=== PATIENT | female | born 1965 | race Caucasian/White ===

== ENCOUNTER 2020-07-09 08:30 | Outpatient (REF) | payer OTHER, SELFPAY ==
[2020-07-09 08:51] LABS: COVID-19 Test Negative (Negative)
== END 2020-07-09 08:31 | disposition home or self-care (01) ==
LOC: HO.EMPCOV 08:30
PROVIDERS: PCP Internal Medicine; Visit Provider Internal Medicine
DX: Z20.828 Contact with and (suspected) exposure to other viral communicable diseases (principal)
CPT/HCPCS: 87635; C9803

== ENCOUNTER 2020-07-12 09:46 | Outpatient (REF) | payer OTHER, SELFPAY ==
[2020-07-12 11:01] LABS: COVID-19 Test Negative (Negative)
== END 2020-07-12 09:47 | disposition home or self-care (01) ==
LOC: HO.EMPCOV 09:46
PROVIDERS: Visit Provider Internal Medicine
DX: Z20.828 Contact with and (suspected) exposure to other viral communicable diseases (principal)
CPT/HCPCS: 87635; C9803

== ENCOUNTER → 2020-08-11 07:37 | Outpatient (BNVA) | payer OTHER, SELFPAY | PROVIDERS: PCP Internal Medicine; Visit Provider Internal Medicine Endocrinology, Diabetes & Metabolism | DX: E11.40 Type 2 diabetes mellitus with diabetic neuropathy, unspecified (principal); E11.21 Type 2 diabetes mellitus with diabetic nephropathy; E78.5 Hyperlipidemia, unspecified; I10 Essential (primary) hypertension; E66.01 Morbid (severe) obesity due to excess calories; E55.9 Vitamin D deficiency, unspecified; I48.91 Unspecified atrial fibrillation; Z90.710 Acquired absence of both cervix and uterus; Z79.4 Long term (current) use of insulin; Z79.01 Long term (current) use of anticoagulants; Z79.899 Other long term (current) drug therapy | CPT/HCPCS: 82947; 99212 ==

== ENCOUNTER 2020-09-18 10:38 | Outpatient (REF) | payer OTHER, SELFPAY ==
[2020-09-18 11:37] LABS: Alanine Aminotransferase 19 U/L (0-31); Albumin Level 4.2 g/dL (3.5-5.0); Alkaline Phosphatase 116 U/L (39-117); Anion Gap 14 (12-20); Aspartate Amino Transferase 17 U/L (5-31); Bilirubin Total 0.5 mg/dL (0.0-1.0); Blood Urea Nitrogen 23 mg/dL (9-16); Calcium 9.4 mg/dL (8.4-10.2); Carbon Dioxide 30 mmol/L (22-29); Chloride 103 mmol/L (96-108); Cholesterol 175 mg/dL; Estimated Glomerular Filt Rate > 60; Glucose Fasting 129 mg/dL (60-99); HDL Cholesterol 44 mg/dL; LDL Cholesterol Calculated 101 mg/dl; Potassium 4.5 mmol/l (3.3-5.1); Sodium 142 mmol/L (135-145); Total Protein 7.5 g/dL (6.5-8.0); Triglycerides 153 mg/dL
[2020-09-18 12:12] LABS: Creatinine Urine 90.27 mg/dL
[2020-09-19 15:53] LABS: LDL Cholesterol Direct 111 mg/dL (<100)
== END 2020-09-18 10:39 | disposition home or self-care (01) ==
LOC: HO.LAB 10:38
PROVIDERS: PCP Internal Medicine; Visit Provider Internal Medicine Endocrinology, Diabetes & Metabolism
DX: E11.9 Type 2 diabetes mellitus without complications (principal)
CPT/HCPCS: 36415; 80053; 80061; 82043; 83721

== ENCOUNTER → 2021-02-25 07:29 | Outpatient (BNVA) | payer OTHER, SELFPAY | PROVIDERS: PCP Internal Medicine; Visit Provider Internal Medicine Endocrinology, Diabetes & Metabolism | DX: E11.21 Type 2 diabetes mellitus with diabetic nephropathy (principal); E11.40 Type 2 diabetes mellitus with diabetic neuropathy, unspecified; E78.5 Hyperlipidemia, unspecified; E55.9 Vitamin D deficiency, unspecified; E66.01 Morbid (severe) obesity due to excess calories; I10 Essential (primary) hypertension; Z79.4 Long term (current) use of insulin | CPT/HCPCS: 82947 ==

== ENCOUNTER 2021-03-07 12:22 | Outpatient (REF) | payer OTHER, SELFPAY ==
[2021-03-07 14:06] LABS: Alanine Aminotransferase 17 U/L (0-31); Albumin Level 4.2 g/dL (3.5-5.0); Alkaline Phosphatase 135 U/L (39-117); Anion Gap 15 (12-20); Aspartate Amino Transferase 21 U/L (5-31); Bilirubin Total 0.6 mg/dL (0.0-1.0); Blood Urea Nitrogen 14 mg/dL (9-16); Calcium 9.8 mg/dL (8.4-10.2); Carbon Dioxide 26 mmol/L (22-29); Chloride 104 mmol/L (96-108); Cholesterol 180 mg/dL; Estimated Glomerular Filt Rate > 60; Glucose Fasting 110 mg/dL (60-99); HDL Cholesterol 49 mg/dL; LDL Cholesterol Calculated 108 mg/dl; Potassium 4.3 mmol/L (3.3-5.1); Sodium 141 mmol/L (135-145); Total Protein 7.8 g/dL (6.5-8.0); Triglycerides 117 mg/dL
[2021-03-07 14:29] LABS: Free T4 (Free Thyroxine) 1.13 ng/dL (0.71-1.85); Thyroid Stimulating Hormone 0.63 uIU/mL (0.32-4.0)
[2021-03-07 14:49] LABS: Glucose Urine UA >=1000 MG/DL (NEG); Leukocyte Esterase Urine NEG (NEG); Nitrite Urine POS (NEG); PH 5.5 (5.0-8.0); Specific Gravity - Urine 1.025 (1.005-1.025); UACC Culture Trigger YES; Urine Blood 3+ (NEG); Urine Ketones NEG (NEG); Urine Protein 2+ MG/DL (NEG-TRACE)
[2021-03-07 14:53] LABS: Appearance Urine CLEAR; Color Urine YELLOW
[2021-03-07 15:04] LABS: Vitamin B12 834 pg/mL (200-900)
[2021-03-07 15:05] LABS: RBC Urine 30-49 /HPF (0); WBC Urine 0-2 /HPF (0-4)
[2021-03-07 15:06] LABS: Bacteria Urine 2+ /LPF; Squamous Epithelial Cell Urine TRACE /LPF
[2021-03-07 15:15] LABS: Creatinine Urine 52.99 mg/dL; Protein/Creatinine Ratio, Ur 1.66 (<0.2); Total Protein Urine Random 88 mg/dL (<12)
[2021-03-07 15:33] LABS: Microalbum/Creatinine Ratio Ur 1062.4 ug/mg cr
[2021-03-09 18:12] LABS: LDL Cholesterol Direct 114 mg/dL (<100)
== END 2021-03-07 12:23 | disposition home or self-care (01) ==
LOC: HO.LAB 12:22
PROVIDERS: PCP Internal Medicine; Visit Provider Internal Medicine Endocrinology, Diabetes & Metabolism
DX: E11.9 Type 2 diabetes mellitus without complications (principal)
CPT/HCPCS: 36415; 80053; 80061; 81001; 81003; 82043; 82607; 83721; 84156; 84439; 84443; 87086; 87088; 87186

== ENCOUNTER 2021-03-16 12:18 | Outpatient (REF) | payer OTHER, SELFPAY ==
[2021-03-16 13:21] LABS: Glucose Urine UA >=1000 MG/DL (NEG); Leukocyte Esterase Urine NEG (NEG); Nitrite Urine NEG (NEG); PH 5.5 (5.0-8.0); Specific Gravity - Urine 1.025 (1.005-1.025); Urine Blood 1+ (NEG); Urine Ketones NEG (NEG); Urine Protein 1+ MG/DL (NEG-TRACE)
[2021-03-16 13:26] LABS: Appearance Urine CLEAR; Color Urine YELLOW
[2021-03-16 13:31] LABS: Mucus Urine 1+ /LPF; Squamous Epithelial Cell Urine 1+ /LPF; WBC Urine 0-2 /HPF (0-4)
== END 2021-03-16 12:19 | disposition home or self-care (01) ==
LOC: HO.10HDL 12:18
PROVIDERS: Visit Provider Internal Medicine Endocrinology, Diabetes & Metabolism
DX: R30.0 Dysuria (principal)
CPT/HCPCS: 81001

== ENCOUNTER 2021-05-21 07:29 | Outpatient (REF) | payer OTHER, SELFPAY ==
--- NOTE | ~2021-05-21 | MM_ITS ---
EXAMINATION: MM SCREENING DIGITAL BREAST TOMOSYNTHESIS, BILATERAL CLINICAL INFORMATION: Screening. Asymptomatic. Benign right stereotactic biopsy 11/01/2017 (benign breast tissue with stromal fibrosis and calcifications). The lifetime risk of breast cancer based on the Tyrer-Cuzick Model is 13%. COMPARISON: Mammography: 05/16/2020, 05/15/2018, 10/25/2017, 10/20/2017 TECHNIQUE: Digital breast tomosynthesis is performed in both the craniocaudal and mediolateral oblique views along with computer-aided detection (CAD). Synthesized 2D images are generated from the tomosynthesis. FINDINGS: There are scattered areas of fibroglandular density (ACR BI-RADS breast composition Category b). Parenchymal clips prior exams. There is no developing density or interval mass or architectural abnormality. No abnormal calcifications. There is a biopsy clip marker again seen mid medial right breast. The axilla and skin contours are unremarkable. MM/MM tomosynthesis screening BI IMPRESSION: No mammographic evidence of malignancy. ASSESSMENT: BI-RADS 1: Negative RECOMMENDATION: Routine annual mammography screening. This patient's information was entered into a reminder system with a target due date for their next mammogram.
== END 2021-05-21 07:30 | disposition home or self-care (01) ==
LOC: HO.MAMMO 07:29
PROVIDERS: PCP Internal Medicine; Visit Provider Internal Medicine
DX: Z12.31 Encounter for screening mammogram for malignant neoplasm of breast (principal)
CPT/HCPCS: 77063; 77067

== ENCOUNTER → 2021-05-25 08:52 | Outpatient (BNVA) | payer OTHER, SELFPAY | PROVIDERS: PCP Internal Medicine; Visit Provider Internal Medicine Cardiovascular Disease | DX: I48.91 Unspecified atrial fibrillation (principal); I10 Essential (primary) hypertension; R07.89 Other chest pain | CPT/HCPCS: 93005 ==

== ENCOUNTER → 2021-12-02 07:36 | Outpatient (BNVA) | payer OTHER, SELFPAY | PROVIDERS: PCP Internal Medicine; Visit Provider Nurse Practitioner Gerontology | DX: E11.21 Type 2 diabetes mellitus with diabetic nephropathy (principal); E11.40 Type 2 diabetes mellitus with diabetic neuropathy, unspecified; E66.01 Morbid (severe) obesity due to excess calories; E78.5 Hyperlipidemia, unspecified; E55.9 Vitamin D deficiency, unspecified; I10 Essential (primary) hypertension; Z79.4 Long term (current) use of insulin; Z68.41 Body mass index [BMI] 40.0-44.9, adult | CPT/HCPCS: 82947 ==

== ENCOUNTER 2021-12-07 07:24 | Outpatient (REF) | payer OTHER, SELFPAY ==
[2021-12-07 08:28] LABS: Alanine Aminotransferase 16 U/L (0-31); Albumin Level 3.9 g/dL (3.5-5.0); Alkaline Phosphatase 103 U/L (39-117); Anion Gap 10 (12-20); Aspartate Amino Transferase 14 U/L (5-31); Bilirubin Total 0.5 mg/dL (0.0-1.0); Blood Urea Nitrogen 18 mg/dL (9-16); Calcium 9.6 mg/dL (8.4-10.2); Carbon Dioxide 29 mmol/L (22-29); Chloride 105 mmol/L (96-108); Cholesterol 169 mg/dL; Estimated Glomerular Filt Rate > 60; Glucose Fasting 144 mg/dL (60-99); HDL Cholesterol 40 mg/dL; LDL Cholesterol Calculated 109 mg/dl; Potassium 4.3 mmol/L (3.3-5.1); Sodium 140 mmol/L (135-145); Total Protein 7.2 g/dL (6.5-8.0); Triglycerides 101 mg/dL
[2021-12-07 08:53] LABS: Vitamin D 25-OH Total 45.2 ng/mL (>30)
[2021-12-07 12:13] LABS: Creatinine Urine 60.81 mg/dL; Microalbum/Creatinine Ratio Ur 733.4 ug/mg cr
[2021-12-08 08:56] LABS: LDL Cholesterol Direct 110 mg/dL (<100)
== END 2021-12-07 07:25 | disposition home or self-care (01) ==
LOC: HO.LAB 07:24
PROVIDERS: PCP Internal Medicine; Visit Provider Nurse Practitioner Gerontology
DX: E11.9 Type 2 diabetes mellitus without complications (principal); E55.9 Vitamin D deficiency, unspecified
CPT/HCPCS: 36415; 80053; 80061; 82043; 82306; 83721

== ENCOUNTER 2022-05-27 09:49 | Outpatient (REF) | payer OTHER, SELFPAY ==
--- NOTE | ~2022-05-27 | MM_ITS ---
EXAMINATION: MM SCREENING DIGITAL BREAST TOMOSYNTHESIS, BILATERAL CLINICAL INFORMATION: Screening. Asymptomatic. The lifetime risk of breast cancer based on the Tyrer-Cuzick Model is 11%. COMPARISON: Mammography: 05/21/2021, 05/10/2020, 12/23/2018 TECHNIQUE: Digital breast tomosynthesis is performed in both the craniocaudal and mediolateral oblique views along with computer-aided detection (CAD). Synthesized 2D images are generated from the tomosynthesis. Additional bilateral MLO views are provided. FINDINGS: There are scattered areas of fibroglandular density (ACR BI-RADS breast composition Category b). There are no significant masses, abnormal calcifications, or other abnormalities. There is incidental biopsy clip marker again seen mid lower inner right breast. Background stromal markings are stable. No developing density or architectural abnormality. The axilla are unremarkable. No significant changes. MM/MM tomosynthesis screening BI IMPRESSION: No mammographic evidence of malignancy. ASSESSMENT: BI-RADS 1: Negative RECOMMENDATION: Routine annual mammography screening. This patient's information was entered into a reminder system with a target due date for their next mammogram.
== END 2022-05-27 09:50 | disposition home or self-care (01) ==
LOC: HO.MAMMO 09:49
PROVIDERS: Visit Provider Internal Medicine
DX: Z12.31 Encounter for screening mammogram for malignant neoplasm of breast (principal)
CPT/HCPCS: 77063; 77067

== ENCOUNTER → 2022-05-29 09:07 | Outpatient (BNVA) | payer OTHER, SELFPAY | PROVIDERS: PCP Nurse Practitioner; Visit Provider Internal Medicine Cardiovascular Disease | DX: I48.91 Unspecified atrial fibrillation (principal); I10 Essential (primary) hypertension | CPT/HCPCS: 93005 ==

== ENCOUNTER → 2022-06-08 08:04 | Outpatient (BNVA) | payer OTHER, SELFPAY | PROVIDERS: PCP Nurse Practitioner; Visit Provider Internal Medicine Endocrinology, Diabetes & Metabolism | DX: E11.9 Type 2 diabetes mellitus without complications (principal); E78.5 Hyperlipidemia, unspecified; Z79.4 Long term (current) use of insulin | CPT/HCPCS: 82947; 83036 ==

== ENCOUNTER 2022-08-23 08:10 | Outpatient (REF) | payer OTHER, SELFPAY ==
[2022-08-23 11:09] LABS: Anion Gap 10 (12-20); Blood Urea Nitrogen 16 mg/dL (9-16); Calcium 9.2 mg/dL (8.4-10.2); Carbon Dioxide 31 mmol/L (22-29); Chloride 106 mmol/L (96-108); Estimated Glomerular Filt Rate > 60; Potassium 3.8 mmol/L (3.3-5.1); Sodium 143 mmol/L (135-145)
[2022-08-23 11:11] LABS: Cholesterol 135 mg/dL; HDL Cholesterol 42 mg/dL; LDL Cholesterol Calculated 76 mg/dl; Triglycerides 88 mg/dL
[2022-08-23 12:03] LABS: HBS Num1 1.74 mIU/mL (0-7.99); HBc Num1 0.07 S/CO (0.00-0.79); HBsAGNum1 0.39 S/CO (0.00-0.99); Hepatitis B Core Antibody Nonreactive (Nonreactive); Hepatitis B Surface Antigen Negative (Negative); ~HepC Num1 0.12 S/CO (0.00-0.79); ~Hepatitis B Surface Antibody NONREACTIVE (Nonreactive); ~Hepatitis C Antibody Nonreactive (Nonreactive)
[2022-08-23 14:10] LABS: Appearance Urine Clear; Color Urine Yellow; Glucose Urine UA >=1000 mg/dL (Negative); Leukocyte Esterase Urine Negative (Negative); Nitrite Urine Negative (Negative); PH 5.5 (5.0-9.0); Specific Gravity - Urine >= 1.030 (1.005-1.025); UMIC TRIGGER UA YES; Urine Blood Moderate (2+) (Negative); Urine Ketones Negative (Negative); Urine Protein 100 (2+) mg/dL (Neg-Trace)
[2022-08-23 14:13] LABS: Bacteria Urine None Seen (None Seen); Hyaline Casts Urine 0-2 /LPF (0-2); RBC Urine >20 /HPF (0-2); Squamous Epithelial Cell Urine 0-2 /HPF (0-2); WBC Urine 0-5 /HPF (0-5)
[2022-08-23 14:54] LABS: Creatinine Urine 72.05 mg/dL; Microalbum/Creatinine Ratio Ur 677.3 ug/mg cr; Total Protein Urine Random 73 mg/dL (<12)
[2022-08-24 15:33] LABS: Complement C3 172 mg/dL (83-193)
[2022-08-25 12:43] LABS: Anti Nuclear Antibody Screen NEGATIVE (NEGATIVE)
[2022-08-26 13:13] LABS: IgA 390 mg/dL (47-310); IgG 1255 mg/dL (600-1640); IgM 177 mg/dL (50-300)
[2022-08-29 15:18] LABS: Prot Elec - Albumin 3.7 g/dL (3.8-4.8); Prot Elec - Alpha1 0.4 g/dL (0.2-0.3); Prot Elec - Alpha2 0.7 g/dL (0.5-0.9); Prot Elec - Beta 1 0.5 g/dL (0.4-0.6); Prot Elec - Beta 2 0.4 g/dL (0.2-0.5); Prot Elec - Gamma 1.3 g/dL (0.8-1.7); Prot Elec - Total Protein 6.9 g/dL (6.1-8.1)
[2022-08-30 16:34] LABS: Kappa, Serum 340 mg/dL (176-443); Kappa/Lambda Ratio, Serum 1.98 (1.29-2.55); Lambda, Serum 172 mg/dL (91-240)
== END 2022-08-23 08:11 | disposition home or self-care (01) ==
LOC: HO.10HDL 08:10
PROVIDERS: Internal Medicine Endocrinology, Diabetes & Metabolism; Visit Provider Internal Medicine Nephrology
DX: R80.1 Persistent proteinuria, unspecified (principal); E11.22 Type 2 diabetes mellitus with diabetic chronic kidney disease; N18.9 Chronic kidney disease, unspecified
CPT/HCPCS: 36415; 80051; 80061; 81001; 82043; 82310; 82565; 82784; 83883; 84156; 84165; 84520; 86038; 86039; 86160; 86334; 86704; 86706; 86803; 87340

== ENCOUNTER 2022-11-03 08:30 | Outpatient (REF) | payer OTHER, SELFPAY ==
[2022-11-03 12:41] LABS: Anion Gap 13 (12-20); Blood Urea Nitrogen 16 mg/dL (9-16); Calcium 9.6 mg/dL (8.4-10.2); Carbon Dioxide 28 mmol/L (22-29); Chloride 104 mmol/L (96-108); Estimated Glomerular Filt Rate > 60; Potassium 4.3 mmol/L (3.3-5.1); Sodium 141 mmol/L (135-145)
== END 2022-11-03 08:31 | disposition home or self-care (01) ==
LOC: HO.10HDL 08:30
PROVIDERS: Visit Provider Internal Medicine Nephrology
DX: I12.9 Hypertensive chronic kidney disease with stage 1 through stage 4 chronic kidney disease, or unspecified chronic kidney disease (principal); E11.22 Type 2 diabetes mellitus with diabetic chronic kidney disease; N18.9 Chronic kidney disease, unspecified; R80.1 Persistent proteinuria, unspecified
CPT/HCPCS: 36415; 80051; 82310; 82565; 84520

== ENCOUNTER → 2022-12-07 07:47 | Outpatient (BNVA) | payer OTHER, SELFPAY | PROVIDERS: PCP Nurse Practitioner; Visit Provider Internal Medicine Endocrinology, Diabetes & Metabolism | DX: E11.9 Type 2 diabetes mellitus without complications (principal); E78.5 Hyperlipidemia, unspecified | CPT/HCPCS: 82947; 83036 ==

== ENCOUNTER 2022-12-15 07:36 | Outpatient (REF) | payer OTHER, SELFPAY ==
--- NOTE | ~2022-12-15 | CT_ITS ---
EXAMINATION: CT ABDOMEN AND PELVIS WITHOUT CONTRAST CLINICAL INFORMATION: Gross hematuria COMPARISON: None available. TECHNIQUE: Multidetector volumetric imaging was performed from the superior aspect of the liver through the pubic symphysis. Sagittal and coronal reformatted images were obtained on the technologist's workstation. This CT examination was performed using dose optimization techniques as appropriate, variously including the following: *Automated exposure control *Adjustment of mA and/or kV according to patient size (this includes techniques or standardized protocols for targeted exams where dose is matched to indication/reason for exam; i.e. extremities or head) *Use of iterative reconstruction technique DLP: 693 mGy-cm FINDINGS: LUNG BASES: The visualized lung bases are unremarkable. LIVER, GALLBLADDER, AND BILIARY TREE: The liver is normal in size, shape, and attenuation. No focal hepatic lesion or biliary ductal dilatation is present. The gallbladder is unremarkable with no evidence of radiopaque gallstones, gallbladder wall thickening, or obvious pericholecystic inflammatory changes. PANCREAS: Unremarkable. SPLEEN: Unremarkable. ADRENAL GLANDS: Unremarkable. KIDNEYS AND URETERS: There is a 5 x 9 mm stone in the lower pole of the right kidney. Hounsfield units measure 1000. This is 12 cm from the mid axillary line. There may be small left renal peripelvic cysts. No imaging follow-up recommended. The kidneys are otherwise normal. BLADDER: Unremarkable. GASTROINTESTINAL TRACT: The small and large bowel are unremarkable. The appendix is unremarkable. ABDOMINAL WALL: Small umbilical hernia containing fat. LYMPH NODES: Normal. VASCULAR: Unremarkable. PELVIC VISCERA: The uterus appears to have been removed. No pelvic mass. OSSEOUS STRUCTURES: Degenerative changes of the spine. CT/CT abdomen pelvis wo IV con IMPRESSION: 5 x 9 mm right lower pole renal stone. Fleischner guidelines were followed.
== END 2022-12-15 07:37 | disposition home or self-care (01) ==
LOC: HO.CT 07:36
PROVIDERS: PCP Nurse Practitioner; Visit Provider Nurse Practitioner Primary Care
DX: R31.9 Hematuria, unspecified (principal)
CPT/HCPCS: 74176

== ENCOUNTER 2023-05-28 09:00 | Outpatient (AMB) | payer OTHER, SELFPAY ==
[2023-05-28 09:02] VITALS: BP 112/70; PULSE 83; BMI 40.1
--- NOTE | 2023-05-28 09:02 | MHC.OFFVIS ---
Intake Vital Signs 05/28/23 09:02 Height 5 ft 4 in Weight 233 lb 11.04 oz BMI 40.1 BP 112/70 Blood Pressure Location Rt brachial Position Sitting Pulse 83 Intake Visit Reasons: 1 yr fu Intake Note: 1 year follow up w/ EKG Lead Quality Technician Required: No Accompanied by: Self / Same As Patient Allergies No Known Allergies Allergy (Verified 05/28/23 09:05) Medication List - Last Reconciled 05/28/23 by Daniele Rojo MD blood-glucose sensor (FreeStyle Shaila 3 Sensor device) As directed, every 14 days cholecalciferol (vitamin D3) 50 mcg PO DAILY cyclobenzaprine 5 mg PO BID PRN empagliflozin-metformin 5-1,000 mg (Synjardy) 1 tab PO BID finerenone (Kerendia) 10 mg PO DAILY FreeStyle Precision Stanford Strips (blood sugar diagnostic) 1 strip miscellaneous DAILY 30 days NS hydrochlorothiazide 12.5 mg PO DAILY 90 days insulin glargine U-300 conc 36 units (0.12 mL) subcut QAM 30 days lisinopril 5 mg PO DAILY metoprolol succinate ER 25 mg PO DAILY pen needle, diabetic (BD Hanna 2nd Gen Pen Needle) 1 ea miscellaneous BID 30 days rivaroxaban (Xarelto) 20 mg PO DAILY 90 days rosuvastatin 20 mg PO BEDTIME tirzepatide (Mounjaro) mg subcut HPI HPI Comments History of Present Illness Details Pleasant 57-year-old female here for follow-up. She has background history of diabetes, paroxysmal atrial fibrillation and atypical chest pains. She also has hypertension. She is here for follow-up after 1 year. She is saying she has been doing well. No palpitations and signs of AFib. She previously had ablation. Sh previously had atypical chest discomfort for which she underwent stress testing. She achieved 7 Mets on treadmill and stopped due to fatigue and dyspnea without any EKG changes. Is denying any chest discomfort follow-up. No bleeding concerns resumed. Blood pressure is stable. 05/28/23: She returns for follow-up. She is denying any chest discomfort or shortness of breath. She has palpitations which are random and last for few seconds. She is not bothered by them. Taking anticoagulation regularly without any bleeding concerns. Blood pressure control is good. 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 Diabetes type 2, controlled Hypertension Dyslipidemia Surgical History History of cardiac radiofrequency ablation Hx of hysterectomy Family History Father CVD (cardiovascular disease) Mother CVD (cardiovascular disease) Diabetes Cancer Social History Alcohol intake: never Patient Tobacco Use Status: Never used Tobacco Review of Systems Const Denies weakness ENT Denies dizziness Card Denies chest pain, Denies chest pain with activity, Denies syncope, Denies rapid heart rate, Denies pedal edema, Denies edema, Denies leg edema, Denies lightheadedness, Denies palpitations, Denies dyspnea, Denies dyspnea on exertion and Denies orthopnea Resp Denies cough, Denies dyspnea and Denies dyspnea on exertion GI Denies hematochezia and Denies change in stool character Musc Denies abnormal gait, Denies muscle cramps, Denies muscle weakness, Denies numbness, Denies radiating pain into limb and Denies tingling Neuro Denies abnormal gait, Denies dizziness, Denies syncope, Denies numbness, Denies tingling and Denies weakness Endo Denies palpitations Physical Exam Vital Signs: Last Vital Signs Pulse 83 05/28/23 09:02 BP 112/70 05/28/23 09:02 BMI result Body Mass Index 40.1 GENERAL APPEARANCE: in no acute distress, pleasant. NECK: no carotid bruit, no jugular venous distention. SKIN: no suspicious lesions, warm and dry. HEART: no murmurs, regular rate and rhythm. LUNGS: clear to auscultation bilaterally. ABDOMEN: soft, nontender. EXTREMITIES: no edema. PERIPHERAL PULSES: equal. NEUROLOGIC: No gross deficits, AAO X 3 Office Procedures EKG Details: Normal sinus rhythm 83 beats per minute, normal axis, normal ECG, QTC 453 milliseconds. [id number], Complete Assessment & Plan Assessment & Plan (1) Hypertension: Code(s): I10 - Essential (primary) hypertension (2) Afib: Code(s): I48.91 - Unspecified atrial fibrillation Plan 57-year-old female here for f/u. HTN- blood pressure well controlled. PAF- s/p ablation- stable. Follow-up in 1 year. Thank you for allowing me to participate in the care of your patient. Please feel free to contact me if you have any questions. Coding Level of Care Code Est Pt Level 3 (12597) Diagnoses Hypertension I10 Afib I48.91 CPT Codes EKG - CPT: 71976-[id number], Complete ([id number])
== END 2023-05-28 09:30 | disposition home or self-care (01) ==
PROVIDERS: PCP Nurse Practitioner; Visit Provider Internal Medicine Cardiovascular Disease
DX: I10 Essential (primary) hypertension (principal); I48.91 Unspecified atrial fibrillation
CPT/HCPCS: 93010; 99213

== ENCOUNTER → 2023-05-28 09:00 | Outpatient (BNVA) | payer OTHER, SELFPAY | PROVIDERS: PCP Nurse Practitioner; Visit Provider Internal Medicine Cardiovascular Disease | DX: I10 Essential (primary) hypertension (principal); I48.91 Unspecified atrial fibrillation | CPT/HCPCS: 93005 ==

== ENCOUNTER → 2023-06-02 10:15 | Outpatient (BNV) | payer OTHER, SELFPAY | PROVIDERS: PCP Internal Medicine; Visit Provider Radiology Diagnostic Radiology | DX: Z12.31 Encounter for screening mammogram for malignant neoplasm of breast (principal) | CPT/HCPCS: 77063; 77067 ==

== ENCOUNTER 2023-06-02 10:17 | Outpatient (REF) | payer OTHER, SELFPAY ==
--- NOTE | ~2023-06-02 | MM_ITS ---
EXAMINATION: MM SCREENING DIGITAL BREAST TOMOSYNTHESIS, BILATERAL CLINICAL INFORMATION: Screening. Asymptomatic. COMPARISON: Mammography: This study is compared with prior exams dating back to 2018. TECHNIQUE: Digital breast tomosynthesis is performed in both the craniocaudal and mediolateral oblique views along with computer-aided detection (CAD). Synthesized 2D images are generated from the tomosynthesis. FINDINGS: There are scattered areas of fibroglandular density (ACR BI-RADS breast composition Category b). There are no significant masses, abnormal calcifications, or other abnormalities. There is tissue marker present in the right breast from prior benign percutaneous biopsy. MM/MM tomosynthesis screening BI IMPRESSION: No mammographic evidence of malignancy. ASSESSMENT: BI-RADS BI-RADS 1 - Negative RECOMMENDATION: Routine annual mammography screening. 1 year F/U This examination should not preclude the clinical evaluation of a suspicious palpable abnormality. This patient's information was entered into a reminder system with a target due date for their next mammogram.
== END 2023-06-02 10:18 | disposition home or self-care (01) ==
LOC: HO.MAMMO 10:17
PROVIDERS: PCP Internal Medicine; Visit Provider Internal Medicine
DX: Z12.31 Encounter for screening mammogram for malignant neoplasm of breast (principal)
CPT/HCPCS: 77063; 77067

== ENCOUNTER 2023-06-07 08:04 | Outpatient (AMB) | payer OTHER, SELFPAY ==
[2023-06-07 08:06] VITALS: BP 100/66; PULSE 80; BMI 40.3
--- NOTE | 2023-06-07 08:06 | A.OFFVIS_ITS ---
Intake Vital Signs 06/07/23 08:06 Height 5 ft 4 in Weight 234 lb 12.677 oz BMI 40.3 BP 100/66 Blood Pressure Location Lt brachial Position Sitting Pulse 80 Pulse Source Pulse Oximeter Intake Visit Reasons: T2Dm Intake Note: Patient present today to follow up on Type 2 Diabetes Mellitus. Patient receives DME supplies through: Pharmacy Last Diabetic Eye exam: 02/2022 Last Podiatry Visit: None Random Glucose: 103mg/dl HgA1C: 6.7% College Director Required: No Accompanied by: Self / Same As Patient Allergies No Known Allergies Allergy (Verified 06/07/23 08:18) Medication List - Last Reconciled 06/07/23 by Mikal Peck MD blood-glucose sensor (Pressi Shaila 3 Sensor device) As directed, every 14 days cholecalciferol (vitamin D3) 50 mcg PO DAILY cyclobenzaprine 5 mg PO BID PRN empagliflozin-metformin 5-1,000 mg (Synjardy) 1 tab PO BID finerenone (Kerendia) 10 mg PO DAILY FreeStyle Precision Stanford Strips (blood sugar diagnostic) 1 strip miscellaneous DAILY 30 days NS hydrochlorothiazide 12.5 mg PO DAILY 90 days insulin glargine U-300 conc 36 units (0.12 mL) subcut QAM 30 days lisinopril 5 mg PO DAILY metoprolol succinate ER 25 mg PO DAILY pen needle, diabetic (BD Hanna 2nd Gen Pen Needle) 1 ea miscellaneous BID 30 days rivaroxaban (Xarelto) 20 mg PO DAILY 90 days rosuvastatin 20 mg PO BEDTIME tirzepatide (Mounjaro) mg subcut HPI HPI Comments History of Present Illness Details Patient is a 57-year-old female with DM type 2 diagnosed in 2003 who presents for management of diabetes. She was last seen by Hayley Metcalf NP on 12/02/21 . Past medical history: Diabetes type 2, hypertension, dyslipidemia, AFib which required cardioversion currently anticoagulation DEVAN on BiPAP Micro and macrovascular complications: Nephropathy Diabetes medications: Toujeo 36 units, Mounjaro 7.5 mg Qwkly , Synjardy 12/999 mg twice a day. Continuous glucose monitoring: In the last 2 weeks average blood glucose 126, GM I 6.3%, C GM is active 923%. 97% within target range and 3% over target. No hypoglycemia. Symptoms reported: occasional numbness, tingling, cramping in lower extremities and hands Hypoglycemia: denies Hyperglycemia: denies urinary frequency, occasional nocturia, denies polydypsia e. Exercise: very active throughout day with daily chores. High Density Press Laborer - CDE education: in the past saw nutrionist Coating Technician: denies Dental exam: long time time ago, Ophthalmology evaluation: February 2023 , no retinopathy Other specialists: Cardiology, Laboratory Tests 02/25/21 03/07/21 03/07/21 07:45 12:38 12:38 Estimated GFR > 60 Hgb A1c (Clinic) 6.9 H Triglycerides 117 Cholesterol 180 LDL Cholesterol Di rect 114 H LDL Cholesterol, C alc 108 HDL Cholesterol 49 Vitamin B12 TSH 0.63 Free T4 1.13 Microalb/Creat Rat io 03/07/21 03/07/21 12:38 12:38 Estimated GFR Hgb A1c (Clinic) Triglycerides Cholesterol LDL Cholesterol Di rect LDL Cholesterol, C alc HDL Cholesterol Vitamin B12 834 TSH Free T4 Microalb/Creat Rat io 1062.4 [facility] Medical History (Updated 12/02/21 @ 09:31 by LOLI Hickman) Obesity due to excess calories Dysuria Diabetic neuropathy associated with type 2 diabetes mellitus Afib Morbid obesity Vitamin D deficiency Diabetic nephropathy associated with type 2 diabetes mellitus 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 Absence of acromegalic features. Neck exam reveals nl size thyroid about 15 gms. No thyroid nodules palpable. No carotid bruits present. Lungs CTA. Heart S1 S2, Reg R/R. No M/R/ G. Skin exam reveals absence of vitiligo or acanthosis nigricans. Abdominal exam reveals Soft NT/ND with NA BS. No organomegaly present. Neck Other: . Extrem Other: Visual exam of foot performed. No ulcerations or open lesions. No onchomycosis, no callouses.Pulses 2 + distally Sensation intact to monofilament exam. Vibratory sensation sensed is intact with 128 Hz tuning fork Results AMB Hemoglobin A1c AMB Hemoglobin A1c 6.7 % Last Edit by Savita Rios on 06/07/23 08:31 Results Reviewed Results Reviewed: 06/07/23 08:14 Glucose, Whole Blood Routine Laboratory Last Values Glucose (Clinic) 103 mg/dL (60-115) 06/07/23 08:14 Assessment & Plan Assessment & Plan (1) Diabetes type 2, controlled: Code(s): E11.9 - Type 2 diabetes mellitus without complications Plan: This is a 56-year-old female with a history of type 2 diabetes being treated with metformin, Jardiance, Mounjaro and basal insulin with excellent glycemic control and known microvascular complications namely microalbuminuria and neuropathy Plan is to continue the current regimen. (2) Dyslipidemia: Code(s): E78.5 - Hyperlipidemia, unspecified Plan: LDL cholesterol at goal. On rosuvastatin 20 mg. Continue current management Orders: Orders Microalbumin, Random (w Creat) Today E11.9 - Type 2 diabetes mellitus without complications AMB Hemoglobin A1c Today E11.40 - Type 2 diabetes mellitus with diabetic neuropathy, unspecified Coding Level of Care Code Est Pt Level 4 (76579) Diagnoses Diabetes type 2, controlled E11.9 Dyslipidemia E78.5
[2023-06-07 08:18] LABS: Glucose, Whole Blood 103 mg/dL (60-115)
== END 2023-06-07 08:31 | disposition home or self-care (01) ==
PROVIDERS: PCP Internal Medicine; Referring Provider Internal Medicine; Visit Provider Internal Medicine Endocrinology, Diabetes & Metabolism
DX: E11.40 Type 2 diabetes mellitus with diabetic neuropathy, unspecified (principal); E78.5 Hyperlipidemia, unspecified
CPT/HCPCS: 99214

== ENCOUNTER → 2023-06-07 08:04 | Outpatient (BNVA) | payer OTHER, SELFPAY | PROVIDERS: Visit Provider Internal Medicine Endocrinology, Diabetes & Metabolism | DX: E11.9 Type 2 diabetes mellitus without complications (principal); E78.5 Hyperlipidemia, unspecified; Z79.4 Long term (current) use of insulin | CPT/HCPCS: 82947; 83036 ==

== ENCOUNTER 2023-07-25 09:46 | Outpatient (REF) | payer OTHER, SELFPAY ==
[2023-07-25 11:10] LABS: Creatinine Urine 92.24 mg/dL; Microalbum/Creatinine Ratio Ur 327.4 ug/mg cr (<30)
== END 2023-07-25 09:47 | disposition home or self-care (01) ==
LOC: HO.10HDLNP 09:46
PROVIDERS: Visit Provider Internal Medicine Endocrinology, Diabetes & Metabolism
DX: E11.9 Type 2 diabetes mellitus without complications (principal)
CPT/HCPCS: 82043; 82570

== ENCOUNTER 2023-09-15 09:44 | Outpatient (REF) | payer OTHER, SELFPAY ==
[2023-09-15 10:39] LABS: Anion Gap 12 (12-20); Blood Urea Nitrogen 16 mg/dL (9-16); Calcium 9.6 mg/dL (8.4-10.2); Carbon Dioxide 28 mmol/L (22-29); Chloride 108 mmol/L (96-108); Estimated Glomerular Filt Rate > 60; Glucose Random 129 mg/dL (60-115); Potassium 4.4 mmol/L (3.3-5.1); Sodium 144 mmol/L (135-145)
== END 2023-09-15 09:45 | disposition home or self-care (01) ==
LOC: HO.LAB 09:44
PROVIDERS: PCP Nurse Practitioner; Visit Provider Nurse Practitioner
DX: R03.0 Elevated blood-pressure reading, without diagnosis of hypertension (principal)
CPT/HCPCS: 36415; 80048

== ENCOUNTER 2023-11-06 08:38 | Outpatient (REF) | payer OTHER, SELFPAY ==
[2023-11-06 11:08] LABS: Anion Gap 10 (12-20); Blood Urea Nitrogen 16 mg/dL (9-16); Calcium 9.6 mg/dL (8.4-10.2); Carbon Dioxide 29 mmol/L (22-29); Chloride 106 mmol/L (96-108); Estimated Glomerular Filt Rate > 60; Potassium 4.1 mmol/L (3.3-5.1); Sodium 141 mmol/L (135-145)
[2023-11-06 11:21] LABS: Cholesterol 210 mg/dL (<200); HDL Cholesterol 42 mg/dL (>40); LDL Cholesterol Calculated 144 mg/dL (<100); Triglycerides 120 mg/dL (<150)
[2023-11-06 13:35] LABS: Appearance Urine Clear; Color Urine Yellow; Glucose Urine UA >=1000 mg/dL (Negative); Leukocyte Esterase Urine Negative (Negative); Nitrite Urine Negative (Negative); Specific Gravity - Urine >= 1.030 (1.005-1.025); UMIC TRIGGER UA YES; Urine Blood Negative (Negative); Urine Ketones Negative (Negative); Urine Protein 30 (1+) mg/dL (Neg-Trace)
[2023-11-06 13:37] LABS: Bacteria Urine Trace (None Seen); Hyaline Casts Urine 0-2 /LPF (0-2); RBC Urine 0-2 /HPF (0-2); Squamous Epithelial Cell Urine 0-2 /HPF (0-2); WBC Urine 0-5 /HPF (0-5)
[2023-11-06 14:16] LABS: Creatinine Urine 74.13 mg/dL; Microalbum/Creatinine Ratio Ur 252.2 ug/mg cr (<30); Protein/Creatinine Ratio, Ur 0.42 (<0.2); Total Protein Urine Random 31 mg/dL (<12)
== END 2023-11-06 08:39 | disposition home or self-care (01) ==
LOC: HO.10HDL 08:38
PROVIDERS: Referring Provider Internal Medicine Nephrology; Visit Provider Internal Medicine Endocrinology, Diabetes & Metabolism
DX: I12.9 Hypertensive chronic kidney disease with stage 1 through stage 4 chronic kidney disease, or unspecified chronic kidney disease (principal); E11.22 Type 2 diabetes mellitus with diabetic chronic kidney disease; N18.9 Chronic kidney disease, unspecified
CPT/HCPCS: 36415; 80051; 80061; 81001; 82043; 82310; 82565; 82570; 84156; 84520

== ENCOUNTER 2024-06-05 08:08 | Outpatient (AMB) | payer OTHER, SELFPAY ==
[2024-06-05 08:12] VITALS: BP 118/72; PULSE 76; BMI 39.1
--- NOTE | 2024-06-05 08:12 | MHC.OFFVIS ---
Vital Signs 06/05/24 08:12 Height 5 ft 4 in Weight 227 lb 11.8 oz BMI 39.1 BP 118/72 Blood Pressure Location Lt brachial Position Sitting Pulse 76 Pulse Source Pulse Oximeter Intake Visit Reasons: DM-conf Intake Note: Patient presents today for D1MT follow up visit. Last Diabetic Eye exam: 07/2023 Last Podiatry Visit: Doesn't have one Random Glucose: 119 mg/dl HgA1c: 6.6%, 06/05/2024 Medical Practice Manager Required: No Accompanied by: Self / Same As Patient Allergies No Known Allergies Allergy (Verified 06/05/24 08:18) Medication List - Last Reconciled 06/05/24 by Mikal Peck MD blood sugar diagnostic (Contour Next Test Strips) USE DIRECTED TO TEST BLOOD SUGAR FOUR (4) TIMES DAILY blood-glucose meter (Contour Next Meter) As directed blood-glucose sensor ([email or web address] G7 Sensor device) USE DIRECTED TO TEST BLOOD SUGAR CHANGE EVERY 10 DAYS cholecalciferol (vitamin D3) (Vitamin D3) 50 mcg PO DAILY cyclobenzaprine 5 mg PO BID PRN empagliflozin-metformin 5-1,000 mg (Synjardy) 1 tab PO BID finerenone (Kerendia) 10 mg PO DAILY hydrochlorothiazide 12.5 mg PO DAILY 90 days insulin glargine U-300 conc (Toujeo SoloStar U-300 Insulin) 36 units (0.12 mL) subcut QAM lancets (Comfort EZ Lancets) As directed lisinopril 5 mg PO DAILY metoprolol succinate ER 25 mg PO DAILY pen needle, diabetic (BD Hanna 2nd Gen Pen Needle) 1 ea miscellaneous BID 30 days rivaroxaban (Xarelto) 20 mg PO DAILY 90 days rosuvastatin 20 mg PO BEDTIME tirzepatide (Mounjaro) 7.5 mg (0.5 mL) subcut QWEEK HPI Comments Details: Patient is a 58-year-old female with DM type 2 diagnosed in 2003 who presents for management of diabetes. . Past medical history: Diabetes type 2, hypertension, dyslipidemia, AFib which required cardioversion currently anticoagulation DEVAN on BiPAP Micro and macrovascular complications: Nephropathy Diabetes medications: Toujeo 36 units, Mounjaro 7.5 mg Qwkly , Synjardy 12/999 mg twice a day. Continuous glucose monitoring: In the last 2 weeks average blood glucose 148 , GM I 6.8%, C GM is active %. 83 % within target range and 15% over target. No hypoglycemia. Symptoms reported: occasional numbness, tingling, cramping in lower extremities and hands Hypoglycemia: denies Hyperglycemia: denies urinary frequency, occasional nocturia, denies polydypsia e. Exercise: very active throughout day with daily chores. 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 - CDE education: in the past saw nutrionist Sample Collector: denies Dental exam: long time time ago, Ophthalmology evaluation: Jul 2023 has appt Jul 2024 , no retinopathy Other specialists: Cardiology, Laboratory Tests 02/25/21 03/07/21 03/07/21 07:45 12:38 12:38 Estimated GFR > 60 Hgb A1c (Clinic) 6.9 H Triglycerides 117 Cholesterol 180 LDL Cholesterol Direct 114 H LDL Cholesterol, Calc 108 HDL Cholesterol 49 Vitamin B12 TSH 0.63 Free T4 1.13 Microalb/Creat Ratio 03/07/21 03/07/21 12:38 12:38 Estimated GFR Hgb A1c (Clinic) Triglycerides Cholesterol LDL Cholesterol Direct LDL Cholesterol, Calc HDL Cholesterol Vitamin B12 834 TSH Free T4 Microalb/Creat Ratio 1062.4 [facility] Medical History (Updated 12/02/21 @ 09:31 by LOLI Hickman) Obesity due to excess calories Dysuria Diabetic neuropathy associated with type 2 diabetes mellitus Afib Morbid obesity Vitamin D deficiency Diabetic nephropathy associated with type 2 diabetes mellitus 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 Absence of acromegalic features. Neck exam reveals nl size thyroid about 15 gms. No thyroid nodules palpable. No carotid bruits present. Lungs CTA. Heart S1 S2, Reg R/R. No M/R/ G. Skin exam reveals absence of vitiligo or acanthosis nigricans. Abdominal exam reveals Soft NT/ND with NA BS. No organomegaly present. Neck Other: . Extrem Other: Visual exam of foot performed. No ulcerations or open lesions. No onchomycosis, no callouses.Pulses 2 + distally Sensation intact to monofilament exam. Vibratory sensation sensed is intact with 128 Hz tuning fork Results AMB Hemoglobin A1c AMB Hemoglobin A1c 6.6 % Last Edit by EDU Rice on 06/05/24 08:35 Results Reviewed Results Reviewed: Laboratory Last Values Glucose (Clinic) 119 mg/dL (60-115) H 06/05/24 08:21 Hgb A1c (Clinic) 6.6 % (4.0-6.0) H 06/05/24 08:24 Assessment & Plan Assessment & Plan (1) Diabetes type 2, controlled: Code(s): E11.9 - Type 2 diabetes mellitus without complications Category: Medical Plan: This is a 58-year-old female with a history of type 2 diabetes being treated with metformin, Jardiance, Mounjaro and basal insulin with excellent glycemic control and known microvascular complications namely microalbuminuria and neuropathy Plan is to continue the current regimen. Will recheck lipid profile and adjust rosuvastatin is necessary Orders: Orders AMB Hemoglobin A1c Today E11.9 - Type 2 diabetes mellitus without complications, Z13.9 - Encounter for screening, unspecified Lipid Panel Today E11.9 - Type 2 diabetes mellitus without complications Coding Level of Care Code Est Pt Level 4 (69369) Diagnoses Diabetes type 2, controlled E11.9
[2024-06-05 08:25] LABS: Glucose, Whole Blood 119 mg/dL (60-115)
== END 2024-06-05 08:53 | disposition home or self-care (01) ==
PROVIDERS: PCP Nurse Practitioner; Visit Provider Internal Medicine Endocrinology, Diabetes & Metabolism
DX: Z13.9 Encounter for screening, unspecified (principal); E11.9 Type 2 diabetes mellitus without complications
CPT/HCPCS: 99214

== ENCOUNTER → 2024-06-05 08:08 | Outpatient (BNVA) | payer OTHER, SELFPAY | PROVIDERS: PCP Internal Medicine; Visit Provider Internal Medicine Endocrinology, Diabetes & Metabolism | DX: E11.9 Type 2 diabetes mellitus without complications (principal); Z79.4 Long term (current) use of insulin | CPT/HCPCS: 82947; 83036 ==

== ENCOUNTER 2024-06-07 09:59 | Outpatient (REF) | payer OTHER, SELFPAY ==
--- NOTE | ~2024-06-07 | MM_ITS ---
EXAMINATION: MM SCREENING DIGITAL BREAST TOMOSYNTHESIS, BILATERAL CLINICAL INFORMATION: Screening. Asymptomatic. COMPARISON: Mammography: Comparison is made with available priors TECHNIQUE: Digital breast mammography with tomosynthesis is performed in both the craniocaudal and mediolateral oblique views along with computer-aided detection (CAD). FINDINGS: There are scattered areas of fibroglandular density (ACR BI-RADS breast composition Category b). There are no significant masses, abnormal calcifications, or other abnormalities. MM/MM tomosynthesis screening BI IMPRESSION: No mammographic evidence of malignancy. ASSESSMENT: BI-RADS BI-RADS 1 - Negative RECOMMENDATION: Routine annual mammography screening. 1 year F/U This examination should not preclude the clinical evaluation of a suspicious palpable abnormality. This patient's information was entered into a reminder system with a target due date for their next mammogram. Electronically signed by: Hyacinth Aleman DO 06/20/2024 10:42 AM EDT
== END 2024-06-07 10:00 | disposition home or self-care (01) ==
LOC: HO.MAMMO 09:59
PROVIDERS: PCP Nurse Practitioner; Visit Provider Internal Medicine
DX: Z12.31 Encounter for screening mammogram for malignant neoplasm of breast (principal)
CPT/HCPCS: 77063; 77067

== ENCOUNTER → 2024-06-07 10:00 | Outpatient (BNV) | payer OTHER, SELFPAY | PROVIDERS: PCP Nurse Practitioner; Visit Provider Internal Medicine | DX: Z12.31 Encounter for screening mammogram for malignant neoplasm of breast (principal) | CPT/HCPCS: 77063; 77067 ==

== ENCOUNTER 2024-06-13 08:22 | Outpatient (REF) | payer OTHER, SELFPAY ==
[2024-06-13 12:02] LABS: Cholesterol 134 mg/dL (<200); HDL Cholesterol 46 mg/dL (>40); LDL Cholesterol Calculated 71 mg/dL (<100); Triglycerides 89 mg/dL (<150)
== END 2024-06-13 08:23 | disposition home or self-care (01) ==
LOC: HO.10HDL 08:22
PROVIDERS: Visit Provider Internal Medicine Endocrinology, Diabetes & Metabolism
DX: E11.9 Type 2 diabetes mellitus without complications (principal)
CPT/HCPCS: 36415; 80061

== ENCOUNTER 2024-09-17 14:22 | Outpatient (AMB) | payer OTHER, SELFPAY ==
[2024-09-17 14:36] VITALS: BP 120/62; PULSE 78; BMI 39.4
--- NOTE | 2024-09-17 14:36 | MHC.OFFVIS ---
Vital Signs 09/17/24 14:36 Height 5 ft 4 in Weight 229 lb 4.492 oz BMI 39.4 BP 120/62 Blood Pressure Location Rt brachial Position Sitting Pulse 78 Pulse Source Monitor Intake Visit Reasons: 1 year follow-up with ekg Intake Note: 1 yr f/up w ekg Automotive Design Layout Drafter Required: No Accompanied by: Self / Same As Patient Allergies No Known Allergies Allergy (Verified 06/05/24 08:18) HPI Comments Details: Pleasant 58-year-old female here for follow-up. She has background history of diabetes, paroxysmal atrial fibrillation and atypical chest pains. She also has hypertension. She is here for follow-up after 1 year. She is saying she has been doing well. No palpitations and signs of AFib. She previously had ablation. Sh previously had atypical chest discomfort for which she underwent stress testing. She achieved 7 Mets on treadmill and stopped due to fatigue and dyspnea without any EKG changes. Is denying any chest discomfort follow-up. No bleeding concerns resumed. Blood pressure is stable. 05/28/23: She returns for follow-up. She is denying any chest discomfort or shortness of breath. She has palpitations which are random and last for few seconds. She is not bothered by them. Taking anticoagulation regularly without any bleeding concerns. Blood pressure control is good. 09/17/2024: She is here for follow-up. Occasionally feels palpitations lasting for few seconds. From her description she likely has premature atrial complexes or PVCs. No prolonged episodes since the ablation for atrial fibrillation. Taking medications regularly. No chest pain or shortness of breath. 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 Diabetes type 2, controlled Hypertension Dyslipidemia Surgical History History of cardiac radiofrequency ablation Hx of hysterectomy Family History Father CVD (cardiovascular disease) Mother CVD (cardiovascular disease) Diabetes Cancer Social History Alcohol intake: never Patient Tobacco Use Status: Never used Tobacco Review of Systems Const Denies chills, Denies fatigue, Denies fever(s), Denies frequent falls, Denies weakness, Denies weight gain and Denies weight loss ENT Denies dizziness Card Denies chest pain, Denies leg edema, Denies lightheadedness, Denies palpitations, Denies dyspnea and Denies dyspnea on exertion Resp Denies cough, Denies dyspnea and Denies dyspnea on exertion GI Denies hematochezia Musc Denies abnormal gait, Denies muscle weakness, Denies numbness, Denies radiating pain into limb and Denies tingling Neuro Denies abnormal gait, Denies dizziness, Denies frequent falls, Denies numbness, Denies tingling and Denies weakness Endo Denies fatigue and Denies palpitations Physical Exam Vital Signs: Last Vital Signs Pulse 78 09/17/24 14:36 BP 120/62 09/17/24 14:36 BMI result Body Mass Index 39.4 GENERAL APPEARANCE: in no acute distress, pleasant. NECK: no carotid bruit, no jugular venous distention. SKIN: no suspicious lesions, warm and dry. HEART: no murmurs, regular rate and rhythm. LUNGS: clear to auscultation bilaterally. ABDOMEN: soft, nontender. EXTREMITIES: no edema. PERIPHERAL PULSES: equal. NEUROLOGIC: No gross deficits, AAO X 3 Office Procedures EKG Details: Sinus rhythm 78 beats per minute axis incomplete right bundle-branch block QRS duration 108 milliseconds, QTC 437 milliseconds. 49103-[id number], Complete Assessment & Plan Assessment & Plan (1) Hypertension: Code(s): I10 - Essential (primary) hypertension Category: Medical (2) Afib: Code(s): I48.91 - Unspecified atrial fibrillation Category: Medical Plan 58-year-old female who is here for follow-up. She has known history of paroxysmal atrial fibrillation she is status post ablation. She has done well since the ablation and has not had any recurrent atrial fibrillation. Some palpitations off and on lasting for few seconds which may happen once a month. I think she is describing PVCs or premature ventricular complexes. I have advised her that if she has frequent episodes then she should reach out to us and we can arrange some monitoring. I have also advised her to check what she is eating and underwent circumstances these palpitations are happening. Follow-up with us in 1 year. Thank you for allowing me to participate in the care of your patient. Please feel free to contact me if you have any questions. Coding Level of Care Code Est Pt Level 4 (12951) Diagnoses Hypertension I10 Afib I48.91 CPT Codes EKG - CPT: 56851-[id number], Complete ([id number])
--- OUTSIDE RECORDS SUMMARY | 2024-09-17 16:43 | XMS_ITS | Clinical Summary ---
Author Organization [facility] Facility Address [address] [place] [address] Care Team Providers Care Kardex Clerk Name Role Phone Marylou Morel NP Primary Care Provider [phone] Allergies No known active allergies Medications Xarelto 20 MG tablet 12/28/2021 Active metoprolol succinate XL (TOPROL XL) 25 MG 24 hr tablet 01/16/2022 Act radha lisinopril 5 MG tablet Take 5 mg by mouth 1 (one) time each day 01/06/2022 Active Toujeo SoloStar 300 UNIT/ML solution pen-injector 36 Units 01/09/2022 Active hydroCHLOROthiaz kb 12.5 MG tablet Take 12.5 mg by mouth 1 (one) time each day 01/04/2022 Active Synjardy 5-1000 MG tablet Take 1 tablet by mouth 2 (two) times a day 12/19/2021 Active cholecalciferol (VITAMIN D-3) 50 MCG (2000 UT) capsule Take 2,000 Units by mouth 1 (one) time each day 12/30/2021 Active aspirin-acetamin ophen-caffeine (EXCEDRIN MIGRAINE) 250-250-65 MG per tablet Take 1 tablet by mouth Active acetaminophen (TYLENOL) 500 MG tablet Take 500 mg by mouth Active Tirzepatide (Mounjaro) 7.5 MG/0.5ML solution pen-injector Inject 7.5 mg under the skin Active rosuvastatin (CRESTOR) 40 MG tablet Take 40 mg by mouth 1 (one) time each day Active cyclobenzaprine (FLEXERIL) 5 MG tablet if needed 10/03/2023 Active Kerendia 10 MG tablet TAKE ONE (1) TABLET BY MOUTH ONCE EVERY DAY 90 tablet 08/04/2024 Active Active Problems Problem Noted Date Diagnosed Date Proteinuria 08/01/2022 Type 2 diabetes mellitus wit h diabetic chronic kidney disease 08/01/2022 History of malignant neoplasm of uterine body Overview (02/06/2022): 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 Dalal Morbid obesity 04/21/2020 Type 2 diabetes mellitus 06/27/2019 Overview (02/06/2022): Dr Louis, [facility] [place] Paroxysmal atrial fibrillation 04/09/2018 Mammographic microcalcification of right breast 10/25/2017 Essential hypertension 05/17/2017 Encounters Date Type Department Care Team Description 08/04/2024 [facility]ill [facility] [address] [place] [address] Pankaj Lua MD from Last 3 Months Immunizations Name Administration Dates Next Due Influenza, Unspecified 06/02/2020,06/14/2018,,06/23/2016 Pneumococcal Polysaccharide 12/05/2017 Tdap 12/05/2017 Social History Tobacco Use Types Packs/Day Years Used Date Smoking Tobacco: Never Assessed Comments Unknown Sex and Gender Information Value Date Recorded Sex Assigned at Not on file Legal Sex Female 2:20 PM EDT Gender Identity Not on file Sexual Orientation Not on file Last Filed Vital Signs Vital Sign Reading Time Taken Comments Blood Pressure 124/65 11/12/2023 4:07 PM EDT Pulse 88 11/12/2023 4:07 PM EDT Temperature - - Respiratory Rate - - Oxygen Saturation 99% 11/12/2023 4:07 PM EDT Inhaled Oxygen Concentration - - Weight 105 kg (232 lb) 11/12/2023 4:07 PM EDT Height - - Body Mass Index - - Plan of Treatment Upcoming Encounters Date Type Department Care Team (Late st Contact Info) Description 11/10/2024 4:00 PM EDT Office Visit [facility] [address] [place] [address] Pankaj Lua MD [address] [address] Health Maintenance Due Date Last Done Comments Breast Cancer Screening 1965 Hepatitis B Vaccine (1 of 3 - 19+ 3-dose series) 1983 Colorectal Cancer Screening: Annual FOBT 2013 Colorectal Cancer Screening: Colonoscopy 2013 Colorectal Cancer Screening: Sigmoidoscopy 2013 Pneumococcal Vaccine: Pediat rics (0 to 5 Years) and At-Risk Patients (6 to 64 Years) (2 of 2 - PCV) 12/05/2018 12/05/2017 Diabetes: Hemoglobin A1C 01/03/2022 Diabetes: Ophthalmology Exam 01/03/2022 Diabetes: Pedal Pulse Checked 01/03/2022 Diabetes: Sensory Foot Exam 01/03/2022 Diabetes: Visual Foot Exam 01/03/2022 Influenza Vaccine (#1) 2024 0, 06/14/2018, 06/22/2017, Additional history exists Insurance COMPREHENSIVE BENEFITS COMPREHENSIVE BENEFITS Care Teams Kardex Clerk Relationship Specialty Start Date End Date Marylou Morel NP [address] [place] [address] PCP - General Nurse Practitioner 09/19/22
== END 2024-09-17 15:05 | disposition home or self-care (01) ==
PROVIDERS: PCP Nurse Practitioner; Visit Provider Internal Medicine Cardiovascular Disease
DX: I10 Essential (primary) hypertension (principal); I48.91 Unspecified atrial fibrillation
CPT/HCPCS: 93010; 99214

== ENCOUNTER → 2024-09-17 14:22 | Outpatient (BNVA) | payer OTHER, SELFPAY | PROVIDERS: PCP Nurse Practitioner; Visit Provider Internal Medicine Cardiovascular Disease | DX: I10 Essential (primary) hypertension (principal); I48.91 Unspecified atrial fibrillation | CPT/HCPCS: 93005 ==

== ENCOUNTER 2024-11-07 08:18 | Outpatient (REF) | payer OTHER, SELFPAY ==
--- OUTSIDE RECORDS SUMMARY | 2024-11-07 08:29 | XMS_ITS | Encounter Summary ---
Author Organization [facility] Address [address] [facility] [address] [place] [address] Phone Care Team Providers Care Automatic Winder Operator Name Role Phone Marylou Morel NP Primary Care Provider [phone] Reason for Visit * Reason Comments Med Refill Encounter Details Date Type Department Care Team (Late Contact Info) Description 10/30/2024 [facility]ill [facility] [address] [place] [address] Pankaj Lua MD [address] [address] Social History Tobacco Use Types Packs/Day Years Used Date Smoking Tobacco: Never Assessed Comments Unknown Sex and Gender Information Value Date Recorded Sex Assigned at Not on file Legal Sex Female 2:20 PM EDT Gender Identity Not on file Sexual Orientation Not on file documented as of this encounter Plan of Treatment Upcoming Encounters Date Type Department Care Team ([facility] Contact Info) Description 11/10/2024 4:00 PM EDT [facility] [address] [place] [phone] Pankaj Lua MD [address] [address] documented as of this encounter Visit Diagnoses Not on filedocumented in this encounter Care Teams Automatic Winder Operator Relationship Specialty Start Date End Date Marylou Morel NP [address] [place] [phone] PCP - General Nurse Practitioner 09/19/22 documented as of this encounter
--- OUTSIDE RECORDS SUMMARY | 2024-11-07 08:30 | XMS_ITS | Clinical Summary ---
Author Organization [facility] Facility Address [address] [place] [address] Care Team Providers Care Ergonomics Technician Name Role Phone Marylou Morel NP Primary Care Provider [phone] Allergies No known active allergies Medications Xarelto 20 MG tablet 2 Active metoprolol succinate XL (TOPROL XL) 25 MG 24 hr tablet 2 Active lisinopril 5 MG tablet Take 5 mg by mouth 1 (one) time each day 2 Active Toujeo SoloStar 300 UNIT/ML solution pen-injector 36 Units 2 Active hydroCHLOROthia zide 12.5 MG tablet Take 12.5 mg by mouth 1 (one) time each day 2 Active Synjardy 5-1000 MG tablet Take 1 tablet by mouth 2 (two) times a day 2 Active cholecalciferol (VITAMIN D-3) 50 MCG (2000 UT) capsule Take 2,000 Units by mouth 1 (one) time each day 2 Active aspirin-acetami nophen-caffeine (EXCEDRIN MIGRAINE) 250-250-65 MG per tablet Take 1 tablet by mouth Active acetaminophen (TYLENOL) 500 MG tablet Take 500 mg by mouth Active Tirzepatide (Mounjaro) 7.5 MG/0.5ML solution pen-injector Inject 7.5 mg under the skin Active rosuvastatin (CRESTOR) 40 MG tablet Take 40 mg by mouth 1 (one) time each day Active cyclobenzaprine (FLEXERIL) 5 MG tablet if needed 4 Active Kerendia 10 MG tablet TAKE ONE (1) TABLET BY MOUTH ONCE EVERY DAY 90 tablet 5 Active Kerendia 10 MG tablet TAKE ONE (1) TABLET BY MOUTH ONCE EVERY DAY 90 tablet 4 10/31/19 25 Discontinued Active Problems Problem Noted Date Diagnosed Date Proteinuria 08/01/2022 Type 2 diabetes mellitus wit h diabetic chronic kidney disease 08/01/2022 History of malignant neoplasm of uterine body Overview (02/06/2022): 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 Dalal Morbid obesity 04/21/2020 Type 2 diabetes mellitus 06/27/2019 Overview (02/06/2022): Dr Louis, [facility] [place] Paroxysmal atrial fibrillation 04/09/2018 Mammographic microcalcification of right breast 10/25/2017 Essential hypertension 05/17/2017 Encounters Date Type Department Care Team Description 10/30/2024 Refill [facility] [address] [place] [address] Pankaj Lua MD from Last 3 Months [...] Visit [facility] [address] [place] [phone] Pankaj Lua MD [address] [facility] [address] [place] [address] Health Maintenance Due Date Last Done Comments Breast Cancer Screening 1965 Colorectal Cancer Screening: Annual FOBT 2013 Colorectal Cancer Screening: Colonoscopy 2013 Colorectal Cancer Screening: Sigmoidoscopy 2013 Pneumococcal Vaccine: Pediatrics (0 to 5 Years) and At-Risk Patients (6 to 64 Years) (2 of 2 - PCV) 12/05/2018 12/05/2017 Diabetes: Hemoglobin A1C 01/03/2022 Diabetes: Ophthalmology Exam 01/03/2022 Diabetes: Pedal Pulse Checked 01/03/2022 Diabetes: Sensory Foot Exam 01/03/2022 Diabetes: Visual Foot Exam 01/03/2022 Influenza Vaccine (#1) 2024 0, 06/14/2018, 06/22/2017, Additional history exists Hepatitis B Vaccine Aged Out No longe r eligible based on patient's age to complete this topic Insurance COMPREHENSIVE BENEFITS COMPREHENSIVE BENEFITS Care Teams Ergonomics Technician Relationship Specialty Start Date End Date Marylou Morel NP [address] [place] [phone] PCP - General Nurse Practitioner 09/19/22
[2024-11-07 10:58] LABS: Anion Gap 12 (12-20); Appearance Urine Clear; Blood Urea Nitrogen 20 mg/dL (9-16); Calcium 9.6 mg/dL (8.4-10.2); Carbon Dioxide 29 mmol/L (22-29); Chloride 108 mmol/L (96-108); Color Urine Yellow; Estimated Glomerular Filt Rate > 60; Glucose Urine UA >=1000 mg/dL (Negative); Leukocyte Esterase Urine Negative (Negative); Nitrite Urine Negative (Negative); PH 5.5 (5.0-9.0); Potassium 4.2 mmol/L (3.3-5.1); Sodium 145 mmol/L (135-145); Specific Gravity - Urine >= 1.030 (1.005-1.025); UMIC TRIGGER UA YES; Urine Blood Small (1+) (Negative); Urine Ketones Negative (Negative); Urine Protein 30 (1+) mg/dL (Neg-Trace)
[2024-11-07 11:07] LABS: Bacteria Urine None Seen (None Seen); Hyaline Casts Urine 0-2 /LPF (0-2); Squamous Epithelial Cell Urine 0-2 /HPF (0-2); WBC Urine 0-5 /HPF (0-5)
[2024-11-07 11:27] LABS: Creatinine Urine 111.33 mg/dL; Microalbum/Creatinine Ratio Ur 268.5 ug/mg cr (<30); Protein/Creatinine Ratio, Ur 0.44 (<0.2); Total Protein Urine Random 49 mg/dL (<12)
== END 2024-11-07 08:19 | disposition home or self-care (01) ==
LOC: HO.10HDL 08:18
PROVIDERS: Visit Provider Internal Medicine Nephrology
DX: N18.2 Chronic kidney disease, stage 2 (mild) (principal)
CPT/HCPCS: 36415; 80051; 81001; 82043; 82310; 82565; 82570; 84156; 84520

== ENCOUNTER 2024-11-29 10:03 | Outpatient (REF) | payer OTHER, SELFPAY ==
--- OUTSIDE RECORDS SUMMARY | 2024-11-29 10:06 | XMS_ITS | Clinical Summary ---
Author Organization [facility] Address [address] [place] [phone] Phone Care Team Providers Care Sugar Plantation Manager Name Role Phone Marylou Morel NP Primary Care Provider [phone] Allergies No known active allergies Medications Xarelto [...] 12/19/2021 Active cholecalciferol (VITAMIN D-3) 50 MCG (1999 UT) capsule Take 2,000 Units by mouth [...] BY MOUTH ONCE EVERY DAY 90 tablet 10/30/2024 Active Mounjaro 7.5 MG/0.5ML solution auto-injector 10/30/2024 Activ e Active Problems Problem Noted Date Diagnosed Date Proteinuria 08/01/2022 Type 2 diabetes mellitus wit h diabetic chronic kidney disease 08/01/2022 History of malignant neoplasm of uterine body Overview (02/06/2022): 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 Dalal Morbid obesity 04/21/2020 Type 2 diabetes mellitus 06/27/2019 [place] (02/06/2022): [place] [facility] [place] Paroxysmal atrial fibrillation 04/09/2018 Mammographic microcalcification of right breast 10/25/2017 Essential hypertension 05/17/2017 Encounters Date Type Department Care Team Description 11/10/2024 4:00 PM EDT Office Visit [facility] [address] [place] [address] Pankaj Lua MD Persistent proteinuria (Primary Dx); Type 2 diabetes mellitus with diabetic chronic kidney disease (HCC) 10/30/2024 Refill [facility] [address] [place] [address] Pankaj Lua MD from Last 3 Months [...] Sign Reading Time Taken Comments Blood Pressure 108/66 11/10/2024 3:38 PM EDT Pulse 69 11/10/2024 3:38 PM EDT Temperature - - Respiratory Rate - - Oxygen Saturation 99% 11/10/2024 3:38 PM EDT Inhaled Oxygen Concentration - - Weight 98.3 kg (216 lb 12.8 oz) 11/10/2024 3:38 PM EDT Height - - Body Mass Index - - Plan of Treatment Upcoming Encounters Date Type Department Care Team (Late st Contact Info) Description 11/16/2025 4:30 PM EDT Office Visit [facility] [address] [place] [address] Pankaj Lua MD [address] [facility] [address] [place] [phone] Health Maintenance Due Date Last Done Comments [...] Diabetes: Visual Foot Exam 01/03/2022 Influenza Vaccine (Season Ended) 2025 06/02/2020, 06/14/2018, 06/22/2017, Additional history exists Hepatitis B Vaccine Aged Out No longe r eligible based on patient's age to complete this topic Procedures Procedure Name Priority Date/Time Associated Diagnosis Comments PROTEIN / CREATININE RATIO, URINE Routine 11/07/2024 10:33 AM EDT ALBUMIN, URINE, RANDOM Routine 11/07/2024 10:33 AM EDT URINALYSIS WITH MICROSCOPIC Routine 11/07/2024 10:33 AM EDT CALCIUM Routine 11/07/2024 10:26 AM EDT CREATININE, BLOOD Routine 11/07/2024 10: 26 AM EDT BUN Routine 11/07/2024 10:26 AM EDT ELECTROLYTE PANEL Routine 11/07/2024 10: 26 AM EDT from Last 3 Months Results * (ABNORMAL) Protein, Total, Random Urine w/Creatinine (Protein/Creat Ratio) (11/07/2024 10:33 AM EDT) Protein Urine Random 49(H) <12 mg/dL See order comments Protein/Creati nine Ratio, Urine 0.44(H) <0.2 See order comments Comment: The spot urine protein:creatinine ratio may increase to 0.3 during normal . 11/07/2024 10:3 3 AM EDT 11/07/2024 10:33 AM EDT Pankaj Lua MD LAB URINE ORDERABLES Final Re [facility] Performing Organization Address [facility] de Phone Number [place] See order comments [place] [address] * (ABNORMAL) Albumin, urine, random (11/07/2024 10:33 AM EDT) Creatinine, Urine 111.33 mg/dL Se e order comments Urine Microalbumin 299.0 mg/L See order comments Microalbumin/Crea tinine Ratio 268.5(H) <30 ug/mg cr See order comments Comment: ?Albumin/Creatinine Ratio Reference Ranges: ?Normal: < 30 ug/mg creatinine ?Microalbuminuria: ??30 - 300 ug/mg creatinine Clinical Albuminuria: ??> 300 ug/mg creatinine 11/07/2024 10:3 3 AM EDT 11/07/2024 10:33 AM EDT Pankaj Lua MD LAB URINE ORDERABLES Final Re sul Performing Organization Address [facility] de Phone Number [place] See order comments [place] [address] * (ABNORMAL) Urinalysis with microscopic (11/07/2024 10:33 AM EDT) Color Urine Yellow See orde r comments Appearance Urine Clear See order comments pH Urine 5.5 5.0 - 9.0 See order comments Glucose Urine >=1000(A) Negative mg/dL See order comments Blood, Urine Small (1+)(A) Negative See order comments Specific Monarch Urine >=1.030(H) 1.005 - 1.025 See order comments Protein Urine 30 (1+)(A) Neg-Trace mg/dL See order comments Ketones, Urine Negative Negative mg/dL See order comments Nitrite, Urine Negative Negative See o rder comments Leukocyte Esterase Urine Negative Negative See order comments RBC, Urine 11-20(A) 0 - 2 /HPF See orde r comments WBC 0-5 0 - 5 /HPF See order comments Squamous Epithelial, Urine 0-2 0 - 2 /HPF See order comments Bacteria, Urine None Seen None Seen See order comments Hyaline Casts, Urine 0-2 0 - 2 /LPF See order comments 11/07/2024 10:3 3 AM EDT 11/07/2024 10:33 AM EDT Pankaj Lua MD LAB URINE ORDERABLES Final Re sult Performing Organization Address [facility] de Phone Number [place] See order comments [place] [address] * Creatinine (11/07/2024 10:26 AM EDT) Creatinine Serum 0.76 0.5 - 1.4 mg/dL See order comments eGFR >60 See order comments Comment: Chronic Kidney Disease: ??Estimated GFR < 60 mL/min/1.73m2 Severe Kidney Disease: ??Estimated GFR < 15 mL/min/1.73m2 11/07/2024 10:2 6 AM EDT 11/07/2024 10:26 AM EDT Pankaj Lua MD LAB BLOOD ORDERABLES Final Re sult Performing Organization Address [facility] Co de Phone Number [facility] See order comments [place] [address] * (ABNORMAL) BUN (11/07/2024 10:26 AM EDT) BUN 20(H) 9 - 16 mg/dL See order comments 11/07/2024 10:2 6 AM EDT 11/07/2024 10:26 AM EDT us Pankaj Lua MD LAB BLOOD ORDERABLES Final Re sult Performing Organization Address [facility] de Phone Number [place] See order comments [place] [address] * Calcium (11/07/2024 10:26 AM EDT) Calcium 9.6 8.4 - 10.2 mg/dL See order comments 11/07/2024 10:2 6 AM EDT 11/07/2024 10:26 AM EDT us Pankaj Lua MD LAB BLOOD ORDERABLES Final Re sult Performing Organization Address [facility] de Phone Number [place] See order comments [place] [address] * Electrolyte panel (11/07/2024 10:26 AM EDT) Sodium 145 135 - 145 mmol/L See order comments Potassium 4.2 3.3 - 5.1 mmol/L See order comments Chloride 108 96 - 108 mmol/L See order comments Bicarbonate (CO2) 29 22 - 29 mmol/L See order comments Anion Gap 12 12 - 20 See order comments 11/07/2024 10:2 6 AM EDT 11/07/2024 10:26 AM EDT us Pankaj Lua MD LAB BLOOD ORDERABLES Final Re sult Performing Organization Address [facility] de Phone Number [place] See order comments [place] [address] from Last 3 Months Insurance COMPREHENSIVE BENEFITS COMPREHENSIVE BENEFITS Care Teams Sugar Plantation Manager Relationship Specialty Start Date End Date Marylou Morel NP [address] [place] [phone] PCP - General Nurse Practitioner 09/19/22
[2024-11-29 11:26] LABS: Estimated Average Glucose 131 mg/dL; Hemoglobin A1c % 6.2 % (<6.0); Total Hemoglobin (HGBA1C) 3555.9401 umol/L
[2024-11-29 11:49] LABS: Anion Gap 12 (12-20); Blood Urea Nitrogen 19 mg/dL (9-16); Calcium 9.6 mg/dL (8.4-10.2); Carbon Dioxide 28 mmol/L (22-29); Chloride 108 mmol/L (96-108); Cholesterol 134 mg/dL (<200); Estimated Glomerular Filt Rate > 60; Glucose Random 112 mg/dL (60-115); HDL Cholesterol 47 mg/dL (>40); LDL Cholesterol Calculated 65 mg/dL (<100); Sodium 144 mmol/L (135-145); Triglycerides 114 mg/dL (<150)
== END 2024-11-29 10:04 | disposition home or self-care (01) ==
LOC: HO.LAB 10:03
DX: E11.9 Type 2 diabetes mellitus without complications (principal); I10 Essential (primary) hypertension
CPT/HCPCS: 36415; 80048; 80061; 83036

== ENCOUNTER 2024-12-01 08:04 | Outpatient (AMB) | payer OTHER, SELFPAY ==
--- NOTE | 2024-12-01 08:06 | MHC.OFFVIS ---
Vital Signs 12/01/24 08:08 Height 5 ft 4 in Weight 227 lb 15.327 oz BMI 39.1 BP 108/64 Blood Pressure Location Lt brachial Position Sitting Pulse 86 Pulse Source Pulse Oximeter Pulse Oximetry (%) 99 Oxygen Delivery Method Room Air Intake Visit Reasons: DM Intake Note: Patient present today to follow up on Type 2 Diabetes Mellitus. Last Diabetic Eye exam: July 2024 Last Podiatry Visit: Does not see a Critical Care Cns Random Glucose: 105 mg/dl HgA1C: 6.2% 11/29/2024 Recoating Machine Operator Required: No Accompanied by: Self / Same As Patient Allergies No Known Allergies Allergy (Verified 12/01/24 08:09) Medication List - Last Reconciled 12/01/24 by Mikal Peck MD blood sugar diagnostic (Contour Next Test Strips) USE DIRECTED TO TEST BLOOD SUGAR FOUR (4) TIMES DAILY blood-glucose meter (Contour Next Meter) As directed blood-glucose sensor ([employer] G7 Sensor device) USE DIRECTED TO TEST BLOOD SUGAR CHANGE EVERY 10 DAYS cholecalciferol (vitamin D3) (Vitamin D3) 50 mcg PO DAILY cyclobenzaprine 5 mg PO BID PRN empagliflozin-metformin 5-1,000 mg (Synjardy) 1 tab PO BID finerenone (Kerendia) 10 mg PO DAILY hydrochlorothiazide 12.5 mg PO DAILY 90 days insulin glargine U-300 conc (Toujeo SoloStar U-300 Insulin) 36 units (0.12 mL) subcut QAM lancets (Unistik 3 Normal Lancet) USE DIRECTED TO CHECK BLOOD SUGAR lisinopril 5 mg PO DAILY metoprolol succinate ER 25 mg PO DAILY pen needle, diabetic (BD Hanna 2nd Gen Pen Needle) USE 1 NEEDLE DIRECTED 2 TIMES A DAY FOR 30 DAYS rivaroxaban (Xarelto) 20 mg PO DAILY rosuvastatin 20 mg PO BEDTIME tirzepatide (Mounjaro) 7.5 mg (0.5 mL) subcut QWEEK HPI Comments Details: Patient is a 59-year-old female with DM type 2 diagnosed in 2003 who presents for management of diabetes. . Past medical history: Diabetes type 2, hypertension, dyslipidemia, AFib which required cardioversion currently anticoagulation DEVAN on BiPAP Micro and macrovascular complications: Nephropathy Diabetes medications: Toujeo 36 units, Mounjaro 7.5 mg Qwkly , Synjardy 12/999 mg twice a day. Continuous glucose monitoring: In the last 2 weeks average blood glucose , GM I 6.8, C GM is active %. 83 % within target range and 16% over target. No hypoglycemia. Symptoms reported: occasional numbness, tingling, cramping in lower extremities and hands Hypoglycemia: denies Hyperglycemia: denies urinary frequency, occasional nocturia, denies polydypsia e. Exercise: very active throughout day with daily chores. Sander Portable Machine - CDE education: in the past saw nutrionist Critical Care Cns: denies Dental exam: long time time ago, Ophthalmology evaluation: appt Jul 2024 , no retinopathy Other specialists: Cardiology, Laboratory Tests 02/25/21 03/07/21 03/07/21 07:45 12:38 12:38 Estimated GFR > 60 Hgb A1c (Clinic) 6.9 H Triglycerides 117 Cholesterol 180 LDL Cholesterol Direct 114 H LDL Cholesterol, Calc 108 HDL Cholesterol 49 Vitamin B12 TSH 0.63 Free T4 1.13 Microalb/Creat Ratio 03/07/21 03/07/21 12:38 12:38 Estimated GFR Hgb A1c (Clinic) Triglycerides Cholesterol LDL Cholesterol Direct LDL Cholesterol, Calc HDL Cholesterol Vitamin B12 834 TSH Free T4 Microalb/Creat Ratio 1062.4 [facility] Medical History (Updated 12/02/21 @ 09:31 by LOLI Hickman) Obesity due to excess calories Dysuria Diabetic neuropathy associated with type 2 diabetes mellitus Afib Morbid obesity Vitamin D deficiency Diabetic nephropathy associated with type 2 diabetes mellitus senior care (current) use of insulin Diabetes type 2, controlled Hypertension Dyslipidemia Surgical History History of cardiac radiofrequency ablation Hx of hysterectomy Family History Father CVD (cardiovascular disease) Mother CVD (cardiovascular disease) Diabetes Cancer Social History Alcohol intake: never Patient Tobacco Use Status: Never used Tobacco Physical Exam Vital Signs: BMI result Body Mass Index 39.1 Assessment & Plan Assessment & Plan (1) Diabetes type 2, controlled: Code(s): E11.9 - Type 2 diabetes mellitus without complications Category: Medical Plan: This is a 58-year-old female with a history of type 2 diabetes being treated with metformin, Jardiance, Mounjaro and basal insulin with excellent glycemic control and known microvascular complications namely microalbuminuria and neuropathy Plan is to continue the current regimen. Coding Level of Care Code Est Pt Level 4 (63453) Diagnoses Diabetes type 2, controlled E11.9
[2024-12-01 08:08] VITALS: BP 108/64; PULSE 86; O2SAT 99; BMI 39.1
--- OUTSIDE RECORDS SUMMARY | 2024-12-01 08:18 | XMS_ITS | Clinical Summary ---
Author Organization [facility] Address [address] [place] [phone] Phone Care Team Providers Care Water Quality Assistant Name Role Phone Marylou Morel NP Primary Care Provider [phone] Allergies No known active allergies Medications Xarelto [...] diabetes mellitus 06/27/2019 Overview (02/06/2022): Dr Louis, [facility] Paroxysmal atrial fibrillation 04/09/2018 Mammographic microcalcification of right breast 10/25/2017 Essential hypertension 05/17/2017 Encounters Date Type Department Care Team Description 11/10/2024 4:00 PM EDT Office Visit [facility] [address] [place] [address] Pankaj Lua MD Persistent proteinuria (Primary Dx); Type 2 diabetes mellitus with diabetic chronic kidney disease (HCC) 10/30/2024 [facility]ill [facility] [address] [place] [address] Pankaj Lua MD from Last 3 Months [...] Visit [facility] [address] [place] [address] [place] [address] Pankaj Lua MD [address] [facility] [address] [place] [phone] Health Maintenance Due Date Last Done Comments [...] Lua MD LAB URINE ORDERABLES Final Re [facility] Performing Organization Address [facility] de Phone Number MEANS See order comments [place] [address] * (ABNORMAL) Albumin, urine, random (11/07/2024 10:33 [...] ORDERABLES Final Re sul Performing Organization Address [facility] de Phone Number MEANS See order comments [place] [address] * (ABNORMAL) Urinalysis with microscopic (11/07/2024 10:33 AM EDT) Color Urine Yellow See orde r comments Appearance Urine Clear See order comments pH Urine 5.5 5.0 - 9.0 See order comments Glucose Urine >=1000(A) Negative mg/dL See order comments Blood, Urine Small (1+)(A) Negative See order comments Specific [place] Urine >=1.030(H) 1.005 - 1.025 See order [...] ORDERABLES Final Re sult Performing Organization Address [facility] de Phone Number MEANS See order comments [place] [address] * Creatinine (11/07/2024 10:26 AM EDT) Creatinine Serum 0.76 0.5 - 1.4 mg/dL See order comments eGFR >60 See order comments Comment: Chronic Kidney Disease: ??Estimated GFR < 60 mL/min/1.73m2 Severe Kidney Disease: ??Estimated GFR < 15 mL/min/1.73m2 11/07/2024 10:2 6 AM EDT 11/07/2024 10:26 AM EDT Pankaj Lua MD LAB BLOOD ORDERABLES Final Re sult Performing Organization Address [facility] Co de Phone Number [facility] See order comments [place] [address] * (ABNORMAL) BUN (11/07/2024 10:26 AM EDT) BUN 20(H) 9 - 16 mg/dL See order comments 11/07/2024 10:2 6 AM EDT 11/07/2024 10:26 AM EDT us Pankaj Lua MD LAB BLOOD ORDERABLES Final Re sult Performing Organization Address [facility] de Phone Number [place] See order comments [place] [address] * Calcium (11/07/2024 10:26 AM EDT) Calcium 9.6 8.4 - 10.2 mg/dL See order comments 11/07/2024 10:2 6 AM EDT 11/07/2024 10:26 AM EDT us Pankaj Lua MD LAB BLOOD ORDERABLES Final Re sult Performing Organization Address [facility] de Phone Number [place] See order comments [place] [address] * Electrolyte panel (11/07/2024 10:26 AM EDT) [...] ORDERABLES Final Re sult Performing Organization Address [facility] de Phone Number [place] See order comments [place] [address] from Last 3 Months Insurance COMPREHENSIVE BENEFITS COMPREHENSIVE BENEFITS Care Teams Water Quality Assistant Relationship Specialty Start Date End Date Marylou Morel NP [address] [place] [phone] PCP - General Nurse Practitioner 09/19/22
[2024-12-01 08:20] LABS: Glucose, Whole Blood 105 mg/dL (60-115)
== END 2024-12-01 08:32 | disposition home or self-care (01) ==
LOC: HO.ENCR 08:05
PROVIDERS: PCP Nurse Practitioner; Visit Provider Internal Medicine Endocrinology, Diabetes & Metabolism
DX: E11.9 Type 2 diabetes mellitus without complications (principal)
CPT/HCPCS: 99214

== ENCOUNTER → 2024-12-01 08:04 | Outpatient (BNVA) | payer OTHER, SELFPAY | PROVIDERS: PCP Nurse Practitioner; Visit Provider Internal Medicine Endocrinology, Diabetes & Metabolism | DX: E11.9 Type 2 diabetes mellitus without complications (principal) | CPT/HCPCS: 82947 ==

== ENCOUNTER 2025-06-13 10:04 | Outpatient (REF) | payer OTHER, SELFPAY ==
--- NOTE | ~2025-06-13 | MM_ITS ---
EXAMINATION: MM SCREENING DIGITAL BREAST TOMOSYNTHESIS, BILATERAL CLINICAL INFORMATION: Screening. Asymptomatic. History of right breast stereotactic needle core biopsy on November 01, 2017. COMPARISON: Comparison made to multiple prior, most recent June 07, 2024, and most remote October 20, 2017. TECHNIQUE: Digital breast tomosynthesis is performed in mediolateral oblique and craniocaudal views along with computer-aided detection (CAD). Synthesized 2D images are generated from the tomosynthesis. FINDINGS: BREAST COMPOSITION: There are scattered areas of fibroglandular density. RIGHT BREAST: Tissue marker from previous needle core biopsy. No significant masses, suspicious calcifications or other abnormalities are seen. LEFT BREAST: No significant masses, suspicious calcifications or other abnormalities are seen. MM/MM tomosynthesis screening BI IMPRESSION: BILATERAL BREASTS: Benign, no mammographic evidence of malignancy. Normal interval follow-up is recommended in 12 months. ASSESSMENT: BI-RADS: Category 2: Benign RECOMMENDATION: Routine annual mammography screening. FOLLOW-UP: 1 year F/U This examination should not preclude the clinical evaluation of a suspicious palpable abnormality. This patient's information was entered into a reminder system with a target due date for their next mammogram. Electronically signed by: Leobardo French MD 06/15/2025 08:24 PM EDT
--- OUTSIDE RECORDS SUMMARY | 2025-06-13 10:08 | XMS_ITS | Patient Health Record ---
Author Organization [facility] Address [address] [place] [address] Support Name Relationship Address Phone DIONICIO MCMILLAN Emergency Contact 78 08/28 [facility] [address] [place] [id number] KATHARINE FLORES Guarantor Unknown [phone] Care Team Providers Care Pr Manager Name Role Phone Kalee Colon M.D. Primary Care Provider Janessa angelita Mikal Montes Unavailable [phone] Reason For Referral No Information Medications Medication SIG (Take, Route, Frequency, Duration) Notes Start Date End Date Status Gabapentin Active Propafenone HCl Acti ve Toujeo SoloStar Acti ve Chlorthalidone Activ e Metoprolol Succinate Active Ozempic Active Synjardy Active amLODIPine Besylate Active Lisinopril 40 MG 1 tablet Orally Once a day Active MiraLax (colon prep) 8.3 ounce ((238) grams mixed with Gatorade or Crystal Light orally begin at 5:00 p.m. the day before the procedure; Duration: 1 day 07/22/2018 Active Xarelto 10 MG 1 tablet with food Orally Once a day Active Dulcolax (colon prep) 5 MG take at 3:00 p.m and 7:00p.m. Orally two tablets twice a day for one day; Duration: 1 day 07/22/2018 Active Pravastatin Sodium A ctive Social History Tobacco Use: Social History Observation Description Date Details (start date - stop date) Never Smoker NA - NA Tobacco Use/Smoking Question Answer Notes Patient is a nonsmoker Alcohol Screen Question Answer Notes Did you have a drink containing alcohol in the p ast year? No Points 0 Interpretation Negative Section Notes: Nonsmoker; no sig. alcohol Problems Problem Type SNOMED Code ICD Code Onset Dates Problem Status W/U Status Risk Notes Problem Screening for malignant neoplasm of colon (516293194) Encounter for screening for malignant neoplasm of colon (Z12.11) Active confirmed Problem Preprocedural examination (162029195991008) Preprocedural examination (Z01.818) Active confirmed Plan Of Treatment Pending Test Test Name Order Date GI BIOPSY 07/29/2018 Future Test Test Name Order Date COLONOSCOPY 06/21/2018 Insurance Providers Payer Name Payer Address Payer Phone Subscriber Number Group Number Insured Name Patient Relationship to Insured Coverage Start Date Coverage End Date R [address] [address] [place] [id number] KATHARINE FLORES Self - patient is the insured Medical (General) History Medical History History ICD Code Uterine cancer--2009 Hypertension IDDM Atrial fibrillation Denies [place],CVA,Lung disease,renal disease Sleep apnea--uses CPAP Surgical History Surgery Date(Month/Year) Hysterectomy-partial--for uterine cancer 2009
--- OUTSIDE RECORDS SUMMARY | 2025-06-13 10:08 | XMS_ITS | Clinical Summary ---
Author Organization [facility] Address [address] [place] [phone] Phone Care Team Providers Care Banana Expert Name Role Phone Marylou Morel NP Primary Care Provider [phone] Allergies No known active allergies Medications Xarelto [...] 5 MG tablet if needed 4 Active Mounjaro 7.5 MG/0.5ML solution auto-injector 5 Active Kerendia 10 MG tablet TAKE ONE (1) TABLET BY MOUTH EVERY DAY 90 tablet 5 Active Kerendia 10 MG tablet TAKE ONE (1) TABLET BY MOUTH ONCE EVERY DAY 90 tablet 5 05/19/20 25 Discontinued Active Problems Problem Noted Date Diagnosed Date Proteinuria 08/01/2022 Type 2 diabetes mellitus wit h diabetic chronic kidney disease 08/01/2022 History of malignant neoplasm of uterine body Overview (02/06/2022): 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 Dalal Morbid obesity 04/21/2020 Type 2 diabetes mellitus 06/27/2019 Overview (02/06/2022): Dr Louis, [facility] Paroxysmal atrial fibrillation 04/09/2018 Mammographic microcalcification of right breast 10/25/2017 Essential hypertension 05/17/2017 Encounters Date Type Department Care Team Description 06/03/2025 Orders Only [facility] [address] [address] [facility] [address] [place] [address] Marylou Owens MA 05/18/2025 Refill [facility] [address] [place] [address] [place] [address] Pankaj Lua MD from Last 3 Months Immunizations Immunization Administration Dates Next Due Influenza, Unspecified 06/02/2020,06/14/2018,,06/23/2016 [...] Visit [facility] [address] [place] [address] [place] [phone] Pankaj Lua MD [address] [phone] Health Maintenance Due Date Last Done Comments Breast Cancer Screening 1965 Colorectal Cancer Screening: Annual FOBT 2013 Colorectal Cancer Screening: Colonoscopy 2013 Colorectal Cancer Screening: Sigmoidoscopy 2013 Pneumococcal Vaccine: 50+ Years (2 of 2 - PCV) 12/05/2018 12/05/2017 Diabetes: Hemoglobin A1C 01/03/2022 Diabetes: Ophthalmology Exam 01/03/2022 Diabetes: Pedal Pulse Checked 01/03/2022 Diabetes: Sensory Foot Exam 01/03/2022 Diabetes: Visual Foot Exam 01/03/2022 Influenza Vaccine (#1) 2025 0, 06/14/2018, 06/22/2017, Additional history exists Pneumococcal Vaccine: Peds (0 to 5 Years) and At-Risk Patients (6 to 49 Years) Discontinued 12/05/2017 Hepatitis B Vaccine Aged Out No longe r eligible based on patient's age to complete this topic Insurance Comprehensive Benefits Comprehensive Benefits Care Teams Banana Expert Relationship Specialty Start Date End Date Marylou Morel NP [address] [place] [phone] PCP - General Nurse Practitioner 09/19/22
== END 2025-06-13 10:05 | disposition home or self-care (01) ==
LOC: HO.MAMMO 10:04
DX: Z12.31 Encounter for screening mammogram for malignant neoplasm of breast (principal)
CPT/HCPCS: 77063; 77067

== ENCOUNTER → 2025-06-13 10:15 | Outpatient (BNV) | payer OTHER, SELFPAY | PROVIDERS: Visit Provider Radiology Body Imaging | DX: Z12.31 Encounter for screening mammogram for malignant neoplasm of breast (principal) | CPT/HCPCS: 77063; 77067 ==

== ENCOUNTER 2025-08-26 07:55 | Outpatient (AMB) | payer OTHER, SELFPAY ==
--- OUTSIDE RECORDS SUMMARY | 2025-08-26 07:58 | XMS_ITS | Clinical Summary ---
Author Organization [facility] Address [address] [place] [phone] Phone Care Team Providers Care Awning Hanger Name Role Phone Marylou Morel NP Primary Care Provider [phone] Allergies No known active allergies Medications Xarelto [...] 5 MG tablet if needed 10/03/2023 Active Mounjaro 7.5 MG/0.5ML solution auto-injector 10/30/2024 Activ e Kerendia 10 MG tablet TAKE ONE (1) TABLET BY MOUTH EVERY DAY 90 tablet 05/19/2025 Active Active Problems Problem Noted Date Diagnosed Date Proteinuria 08/01/2022 Type 2 diabetes mellitus wit h diabetic chronic kidney disease 08/01/2022 History of malignant neoplasm of uterine body Overview (02/06/2022): 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 Dalal Morbid obesity 04/21/2020 Type 2 diabetes mellitus 06/27/2019 Overview (02/06/2022): Dr Louis, [facility] Paroxysmal atrial fibrillation 04/09/2018 Mammographic microcalcification of right breast 10/25/2017 Essential hypertension 05/17/2017 Encounters Date Type Department Care Team Description 06/03/2025 Orders Only [facility] [address] [facility] [address] [place] [address] Marylou Owens MA from Last 3 Months Immunizations Immunization Administration [...] Visit [facility] [address] [place] [address] [place] [address] Pankaj Lua MD [address] [phone] Health Maintenance Due Date Last Done Comments [...] Insurance Comprehensive Benefits Comprehensive Benefits Care Teams Awning Hanger Relationship Specialty Start Date End Date Marylou Morel NP [address] [place] [phone] PCP - General Nurse Practitioner 09/19/22
--- OUTSIDE RECORDS SUMMARY | 2025-08-26 07:58 | XMS_ITS | Patient Health Record ---
Author Organization [facility] Address [address] [place] [address] Support Name Relationship Address Phone DIONICIO MCMILLAN Emergency Contact 78 08/28 [facility] [address] [place] [phone] KATHARINE FLORES Guarantor Unknown [phone] Care Team Providers Care Etl Architect Name Role Phone Kalee Colon M.D. Primary Care Provider Janessa angelita Mikal Montes Unavailable [phone] Reason For Referral No Information Medications Medication SIG (Take, Route, Frequency, Duration) Notes Start Date End Date Status Gabapentin Active Propafenone HCl Acti ve Toujeo SoloStar Acti ve Chlorthalidone Activ e Metoprolol Succinate Active Ozempic Active Synjardy Active amLODIPine Besylate Active Lisinopril 40 MG Tablet 1 tablet Orally Once a day Active MiraLax (colon prep) 8.3 ounce (238) grams Powder mixed with Gatorade or Crystal Light orally begin at 5:00 p.m. the day before the procedure; Duration: 1 day 07/22/2018 Active Xarelto 10 MG Tablet 1 tablet with food Orally Once a day Active Dulcolax (colon prep) 5 MG Tablet Delayed Release take at 3:00 p.m and 7:00p.m. Orally two tablets twice a day for one day; Duration: 1 day 07/22/2018 Active Pravastatin Sodium A ctive Social History Tobacco Use: Social History Observation Description Date Details (start date - stop date) Never Smoker NA - NA Social History Drugs/Alcohol: Social Info Question Answer Notes Alcohol Screen Did you have a drink containing alcohol in the past year? 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 alcohol Problems Problem Type SNOMED Code ICD Code Onset Dates Problem Status W/U Status Risk Notes Problem Screening for malignant neoplasm of colon (861858487) Encounter for screening for malignant neoplasm of colon (Z12.11) Active confirmed Problem Preprocedural examination (152945460093252) Preprocedural examination (Z01.818) Active confirmed Plan Of Treatment Pending Test Test Name Order Date GI BIOPSY 07/29/2018 Future Test Test Name Order Date COLONOSCOPY 06/21/2018 Insurance Providers Payer Name Payer Address Payer Phone Subscriber Number Group Number Insured Name Patient Relationship to Insured Coverage Start Date Coverage End Date [employer] [address] [address] [place] [id number] KATHARIEN FLORES Self - patient is the insured Medical (General) History Medical History History ICD Code Uterine cancer--2009 Hypertension IDDM Atrial fibrillation Denies [place],CVA,Lung disease,renal disease Sleep apnea--uses CPAP Surgical History Surgery Date(Month/Year) Hysterectomy-partial--for uterine cancer 2009
--- NOTE | 2025-08-26 08:00 | A.OFFVIS_ITS ---
Vital Signs 08/26/25 08:05 Height 5 ft 4 in Weight 229 lb 15.074 oz BMI 39.5 BP 106/68 Blood Pressure Location Lt brachial Position Sitting Pulse 85 Pulse Source Pulse Oximeter Pulse Oximetry (%) 100 Oxygen Delivery Method Room Air Intake Visit Reasons: T2DM Intake Note: Patient present today to follow up on Type 2 Diabetes Mellitus. Last Diabetic Eye exam: [facility], August 05, 2025 Last Podiatry Visit: Does not see a Locomotive Inspector Random Glucose: 131 mg/dl HgA1C: 6.8% 08/26/2025 Electrical Inspector Required: No Accompanied by: Self / Same As Patient Allergies No Known Allergies Allergy (Verified 08/26/25 08:05) Medication List - Last Reconciled 08/26/25 by Mikal Peck MD blood sugar diagnostic (Contour Next Test Strips) USE DIRECTED TO TEST BLOOD SUGAR FOUR (4) TIMES DAILY blood-glucose meter (Contour Next Meter) As directed blood-glucose sensor (DexStorefront G7 Sensor device) USE DIRECTED TO TEST BLOOD SUGAR CHANGE EVERY 10 DAYS cholecalciferol (vitamin D3) (Vitamin D3) 50 mcg PO DAILY cyclobenzaprine 5 mg PO BID PRN empagliflozin-metformin 5-1,000 mg (Synjardy) 1 tab PO BID finerenone (Kerendia) 10 mg PO DAILY hydrochlorothiazide 12.5 mg PO DAILY 90 days insulin glargine U-300 conc (Toujeo SoloStar U-300 Insulin) 36 units (0.12 mL) subcut QAM lancets (Unistik 3 Normal Lancet) USE DIRECTED TO CHECK BLOOD SUGAR lisinopril 5 mg PO DAILY metoprolol succinate ER 25 mg PO DAILY pen needle, diabetic (BD Hanna 2nd Gen Pen Needle) USE 1 NEEDLE DIRECTED 2 TIMES A DAY FOR 30 DAYS rivaroxaban (Xarelto) 20 mg PO DAILY rosuvastatin 20 mg PO BEDTIME tirzepatide (Mounjaro) 7.5 mg (0.5 mL) subcut QWEEK HPI Comments Details: Patient is a 59-year-old female with DM type 2 diagnosed in 2003 who presents for management of diabetes. . Past medical history: Diabetes type 2, hypertension, dyslipidemia, AFib which required cardioversion currently anticoagulation DEVAN on BiPAP Micro and macrovascular complications: Nephropathy Diabetes medications: Toujeo 36 units, Mounjaro 7.5 mg Qwkly , Synjardy 12/999 mg twice a day. Continuous glucose monitoring: In the last 2 weeks average blood glucose , GM I 6.7, C GM is active %. 86 % within target range and 11% over target. 2% hypoglycemia. Symptoms reported: occasional numbness, tingling, cramping in lower extremities and hands Hypoglycemia: denies Hyperglycemia: denies urinary frequency, occasional nocturia, denies polydypsia e. Exercise: very active throughout day with daily chores. 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: in the past saw nutrionist Locomotive Inspector: denies Dental exam: long time time ago, Ophthalmology evaluation: last appt couple of wks ago , no retinopathy Other specialists: Cardiology, Laboratory Tests 02/25/21 03/07/21 03/07/21 07:45 12:38 12:38 Estimated GFR > 60 Hgb A1c (Clinic) 6.9 H Triglycerides 117 Cholesterol 180 LDL Cholesterol Direct 114 H LDL Cholesterol, Calc 108 HDL Cholesterol 49 Vitamin B12 TSH 0.63 Free T4 1.13 Microalb/Creat Ratio 03/07/21 03/07/21 12:38 12:38 Estimated GFR Hgb A1c (Clinic) Triglycerides Cholesterol LDL Cholesterol Direct LDL Cholesterol, Calc HDL Cholesterol Vitamin B12 834 TSH Free T4 Microalb/Creat Ratio 1062.4 REPLACED BY [facility] Medical History (Updated 12/02/21 @ 09:31 by OLU Hickman-C) Obesity due to excess calories Dysuria Diabetic neuropathy associated with type 2 diabetes mellitus Afib Morbid obesity Vitamin D deficiency Diabetic nephropathy associated with type 2 diabetes mellitus senior living (current) use of insulin Diabetes type 2, controlled Hypertension Dyslipidemia Surgical History History of cardiac radiofrequency ablation Hx of hysterectomy Family History Father CVD (cardiovascular disease) Mother CVD (cardiovascular disease) Diabetes Cancer Social History Alcohol intake: never Patient Tobacco Use Status: Never used Tobacco Physical Exam Vital Signs: Last Vital Signs Pulse 85 08/26/25 08:05 BP 106/68 08/26/25 08:05 Pulse Ox 100 08/26/25 08:05 Oxygen Delivery Method Room Air 08/26/25 08:05 BMI result Body Mass Index 39.5 Absence of Cushingoid features. Absence of acromegalic features. Neck exam reveals nl size thyroid about 15 gms. No thyroid nodules palpable. No carotid bruits present. Lungs CTA. Heart S1 S2, Reg R/R. No M/R/ G. Skin exam reveals absence of vitiligo or acanthosis nigricans. Abdominal exam reveals Soft NT/ND with NA BS. No organomegaly present. Neck Other: . Extrem Other: Visual exam of foot performed. No ulcerations or open lesions. No onchomycosis, no callouses.Pulses 2 + distally Sensation intact to monofilament exam. Vibratory sensation sensed is intact with 128 Hz tuning fork Results AMB Hemoglobin A1c AMB Hemoglobin A1c 6.8 % Last Edit by EUD Fernandez on 08/26/25 08:24 Results Reviewed Results Reviewed: Laboratory Last Values Glucose (Clinic) 131 mg/dL (60-115) H 08/26/25 08:11 Hgb A1c (Clinic) 6.8 % (4.0-6.0) H 08/26/25 08:17 Assessment & Plan Assessment & Plan (1) Diabetes type 2, controlled: Code(s): E11.9 - Type 2 diabetes mellitus without complications Category: Medical Plan: This is a 58-year-old female with a history of type 2 diabetes being treated with metformin, Jardiance, Mounjaro and basal insulin with excellent glycemic control and known microvascular complications namely microalbuminuria and neuropathy Plan is to continue the current regimen. We will have patient follow up in 6 months . Orders: Orders AMB Hemoglobin A1c Today E11.9 - Type 2 diabetes mellitus without complications Coding Level of Care Code Est Pt Level 4 (37598) Add On Problem Visit Only Diagnoses Diabetes type 2, controlled E11.9
[2025-08-26 08:05] VITALS: BP 106/68; PULSE 85; O2SAT 100; BMI 39.5
[2025-08-26 08:15] LABS: Glucose, Whole Blood 131 mg/dL (60-115)
== END 2025-08-26 08:21 | disposition home or self-care (01) ==
LOC: HO.ENCR 07:55
PROVIDERS: Visit Provider Internal Medicine Endocrinology, Diabetes & Metabolism
DX: E11.9 Type 2 diabetes mellitus without complications (principal)
CPT/HCPCS: 99214

== ENCOUNTER → 2025-08-26 07:55 | Outpatient (BNVA) | payer OTHER, SELFPAY | PROVIDERS: Visit Provider Internal Medicine Endocrinology, Diabetes & Metabolism | DX: E11.40 Type 2 diabetes mellitus with diabetic neuropathy, unspecified (principal); E11.29 Type 2 diabetes mellitus with other diabetic kidney complication; R80.9 Proteinuria, unspecified; Z79.84 Long term (current) use of oral hypoglycemic drugs; Z79.4 Long term (current) use of insulin; Z79.85 Long-term (current) use of injectable non-insulin antidiabetic drugs | CPT/HCPCS: 82947; 83036 ==